=== PATIENT | female | born 1950 ===

== ENCOUNTER → 2022-04-14 07:56 | Outpatient (BNVA) | payer MEDICARE, SELFPAY | PROVIDERS: PCP Internal Medicine; Visit Provider Surgery | DX: E66.01 Morbid (severe) obesity due to excess calories (principal); Z68.41 Body mass index [BMI] 40.0-44.9, adult; I10 Essential (primary) hypertension; K21.9 Gastro-esophageal reflux disease without esophagitis; E03.9 Hypothyroidism, unspecified; E78.5 Hyperlipidemia, unspecified | CPT/HCPCS: Q3014 ==

== ENCOUNTER → 2022-04-18 10:24 | Outpatient (REF) | payer MEDICARE, SELFPAY ==
--- NOTE | ~2022-04-18 | XR_ITS ---
EXAMINATION: XR CHEST CLINICAL INFORMATION: Bariatric service evaluation. E66.01. COMPARISON: None TECHNIQUE: 2 views of the chest were obtained. FINDINGS: The lungs are clear and there is no airspace consolidation, groundglass opacity, or effusion. Normal vascularity. The cardiopericardial silhouette is upper limits of normal. There is tapering right cardiophrenic angle likely a combination of mild elevated diaphragm and areolar tissue. The hilar contours are normal. There are multilevel degenerative changes thoracic spine. XR/XR chest 2V IMPRESSION: -No airspace consolidation or effusion.
--- NOTE | 2022-04-18 10:41 | ECG_ITS ---
Test Reason : e66.01 Blood Pressure : / mmHG Vent. Rate : 082 BPM Atrial Rate : 082 BPM P-R Int : 166 ms QRS Dur : 076 ms QT Int : 378 ms P-R-T Axes : 052 -21 029 degrees QTc Int : 441 ms Sinus rhythm with marked sinus arrhythmia Inferior infarct , age undetermined Cannot rule out Anterior infarct , age undetermined Abnormal ECG No previous ECGs available Referred By: Tony Milligan Electronically Signed By:BRYAN COTTER MD
[2022-04-18 11:04] LABS: MANUAL DIFF FLAG NO
[2022-04-18 11:56] LABS: Basophils Percent Auto 0.4 % (0-2); Eosinophils Absolute Auto 0.1 X10*3/uL (0.0-0.4); Eosinophils Percent Auto 1.4 % (0-4); Hematocrit 39.5 % (37.0-47.0); Hemoglobin 12.8 g/dl (12.0-16.0); Imm Gran Abs Auto 0.03 X10*3/uL (0.00-0.03); Imm Gran Pct Auto 0.4 % (0.0-0.4); Lymphocytes Absolute Auto 2.2 X10*3/uL (1.2-4.9); Mean Corpuscular HGB Conc 32.4 g/dl (31.0-35.0); Mean Corpuscular Hemoglobin 29.2 pg (27.0-33.0); Monocytes Absolute Auto 0.5 X10*3/uL (0.1-1.2); Monocytes Percent Auto 6.8 % (2-11); Neutrophils Absolute Auto 4.1 x10*3/uL (2.0-8.3); Platelet Count 295 X10*3/uL (160-400); Red Blood Count 4.39 X10*6/uL (4.20-5.50); Red Cell Distribution Width 12.6 % (11.0-16.0); White Blood Count 6.9 X10*3/uL (4.8-10.8)
[2022-04-18 12:24] LABS: Estimated Average Glucose 117 mg/dL; Hemoglobin A1c % 5.7 %
[2022-04-18 13:59] LABS: Alanine Aminotransferase 27 U/L (0-31); Albumin Level 4.3 g/dL (3.5-5.0); Alkaline Phosphatase 87 U/L (39-117); Anion Gap 12 (12-20); Aspartate Amino Transferase 24 U/L (5-31); Bilirubin Total 0.5 mg/dL (0.0-1.0); Blood Urea Nitrogen 18 mg/dL (9-16); C Reactive Protein 1.03 mg/dL (< or = 0.50); Calcium 9.4 mg/dL (8.4-10.2); Carbon Dioxide 27 mmol/L (22-29); Chloride 103 mmol/L (96-108); Cholesterol 269 mg/dL; Estimated Glomerular Filt Rate > 60; Ferritin 146 ng/mL (10-250); Glucose Random 98 mg/dL (60-115); HDL Cholesterol 57 mg/dL; Insulin 8 uU/mL (2-29); Iron 56 mcg/dL (30-160); LDL Cholesterol Calculated 182 mg/dl; Percent Iron Saturation 20 % (15-50); Potassium 4.3 mmol/L (3.3-5.1); Sodium 138 mmol/L (135-145); TSH reflex Free T4 0.79 uIU/mL (0.32-4.0); Total Iron Binding Capacity 285 mcg/dL (228-428); Triglycerides 152 mg/dL; Unsaturated Iron Binding 229 ug/dL; Vitamin D 25-OH Total 26.8 ng/mL (>30)
[2022-04-18 14:14] LABS: Folate 17.4 ng/mL (> or = 4.0); Vitamin B12 695 pg/mL (200-900)
[2022-04-22 15:13] LABS: Calcium (PTHI) 9.5 mg/dL (8.6-10.4); PTHI 37 pg/mL (16-77)
[2022-04-23 19:03] LABS: Zinc 73 mcg/dL (60-130)
[2022-04-24 12:49] LABS: Vitamin A 55 mcg/dL (38-98)
[2022-04-27 06:13] LABS: Vitamin B1 11 nmol/L (8-30)
== END ==
LOC: HO.CARD 10:24
PROVIDERS: Visit Provider Surgery
DX: E66.01 Morbid (severe) obesity due to excess calories (principal); K21.9 Gastro-esophageal reflux disease without esophagitis; E03.9 Hypothyroidism, unspecified; E78.5 Hyperlipidemia, unspecified; I10 Essential (primary) hypertension
CPT/HCPCS: 36415; 71046; 80053; 80061; 82306; 82607; 82728; 82746; 83036; 83525; 83540; 83970; 84425; 84443; 84590; 84630; 85025; 86140; 93005

== ENCOUNTER 2022-05-01 07:51 | Outpatient (REF) | payer MEDICARE, SELFPAY ==
--- NOTE | ~2022-05-01 | CT_ITS ---
EXAMINATION: CT CHEST WITH CONTRAST CLINICAL INFORMATION: Congenital malformations of heart. COMPARISON: Chest. 04/18/2022. TECHNIQUE: Multidetector volumetric CT imaging of the chest was obtained after the administration of 50 mL of Omnipaque 350 intravenous contrast without immediate adverse reactions. Axial MIP volume rendering provided. Sagittal and coronal reformatted images were obtained. This CT examination was performed using dose optimization techniques as appropriate, variously including the following: *Automated exposure control *Adjustment of mA and/or kV according to patient size (this includes techniques or standardized protocols for targeted exams where dose is matched to indication/reason for exam; i.e. extremities or head) *Use of iterative reconstruction technique DLP: 253 mGy-cm FINDINGS: CORPORATE ADMINISTRATIVE ASSISTANT: Unremarkable. LUNGS: The lungs are well-expanded and clear of acute pneumonic process. Minimal atelectatic changes are visualized in the lingular segment. MEDIASTINUM: There is mild asymmetry of thyroid gland with left slightly smaller than right. The central trachea and bronchi are widely patent. Heart size and the great vessels are normal caliber.. There is moderate size pericardial fat stimulating soft tissue lesion on the chest x-ray 04/18/2022. No abnormal size mediastinal or hilar lymph nodes seen. There is a small hiatal hernia. Trace coronary artery calcifications are present. PLEURA: There is no pleural effusion. No pleural mass or thickening. AXILLA: No lymphadenopathy. UPPER ABDOMEN: Visualized liver is diffusely attenuated without focal lesion. Visualized spleen, pancreas and bilateral adrenal glands and the gallbladder appears unremarkable. OSSEOUS STRUCTURES: There is moderate ventral spondylosis mid to lower thoracic spine. CT/CT chest w IV con IMPRESSION: Moderate-sized pericardial fat stimulating soft tissue lesion on the chest x-ray 04/18/2022. No acute process seen in the chest. Small hiatal hernia. Fleischner guidelines were followed.
[2022-05-01] MEDS: iohexoL 350 MG/ML 100 ML INFUS..BTL IV (08:36)
== END 2022-05-01 07:52 | disposition home or self-care (01) ==
LOC: HO.CT 07:51
PROVIDERS: Visit Provider Surgery
DX: Q24.8 Other specified congenital malformations of heart (principal); Q79.1 Other congenital malformations of diaphragm; Q87.89 Other specified congenital malformation syndromes, not elsewhere classified; R94.31 Abnormal electrocardiogram [ECG] [EKG]
CPT/HCPCS: 71260; Q9967

== ENCOUNTER → 2022-05-07 07:52 | Outpatient (REF) | payer MEDICARE, SELFPAY ==
--- NOTE | ~2022-05-07 | NM_ITS ---
Myocardial perfusion study Indication: Abnormal EKG to evaluate for myocardial ischemia Technique: The patient was brought in for a Lexiscan perfusion study on 05/07/2022. Patient performed low-level exercise and was injected 0.4 mg of Lexiscan intravenously. Within a minute of injection, 30 mCi of sestamibi was given intravenously. Images were obtained using the SPECT gamma camera interlaced with the gating device. Images were obtained in supine position. Resting perfusion study was performed on 05/08/2022. Patient was administered 30 mCi of sestamibi intravenously at rest. Images were then obtained in supine position. Images obtained with and without CT attenuation. Total DLP 170 mGy-cm. Images were processed with the software and compared side to side in short axis, horizontal long axis and vertical long axis views. Findings: The stress perfusion study showed non attenuated images show mildly reduced uptake in the inferior wall of the LV myocardium. Remainder of the LV myocardium normally attenuation corrected images show minimally reduced uptake in the apex of the LV myocardium.. The gated study shows normal LV systolic function with calculated LVEF of 55%. LV cavity is normal in size. The gated study shows normal systolic wall thickening and contraction of segments. Resting study shows nontender images show moderately reduced uptake in the inferior wall of the LV myocardium. Impression corrected images show mildly reduced uptake in the apex and the distal septum of the LV myocardium.. Gating at rest reveals normal systolic wall motion with ejection fraction at 71%. The findings are consistent with no reversible defect suggestive of ischemia. NM/NM vincent perf SPECT rest & str Impression: 1. Myocardial perfusion imaging study shows likely normal myocardial perfusion 2. Gated LVEF is 55% 3. Transient ischemic dilatation not present EKG is nondiagnostic for ischemia
--- NOTE | 2022-05-07 07:55 | CA_ITS ---
Acquisition Time: 2022-05-07 08:02:06 Total Exercise Time: 00:02:00 Test Indications: ABN EKG Medications: SEE CHART Protocol: LEXISCAN Max HR: 111 BPM 74% of Pred: 150 BPM Max BP: 134/060 mmHG Max Work Load: 1.0 METS Pharmacological stress test with Lexiscan injection, while sitting and kicking her legs, with mild sob, no chest discomfort, with isolated PAC, with normotensive response to injection, with nondiagnostic EKG for ischemia. In recovery she was treated with Aminophylline 75mg IVP to reverse Lexiscan. Nuclear images pending. Test reviewed with Dr Marshall Referred By: Tony Milligan Overread By: KAT CHO
== END ==
LOC: HO.CARD 07:52
PROVIDERS: Visit Provider Surgery
DX: Z01.818 Encounter for other preprocedural examination (principal); R94.31 Abnormal electrocardiogram [ECG] [EKG]; R06.02 Shortness of breath
CPT/HCPCS: 78452; 93017; A9500; J0280; J2785

== ENCOUNTER → 2022-05-09 07:32 | Outpatient (REF) | payer MEDICARE, SELFPAY ==
--- NOTE | 2022-05-09 07:34 | CA_ITS ---
Transthoracic Echocardiogram Patient (Last, First, Middle): Maria Esther Salter, Gender: Female Date of : 1950 Age: 72 Procedure Date: 05/09/2022 Procedure Type: Transthoracic Echocardiogram Location: OP Height: 162.56 cm Weight: 104.33 kg BSA: 2.08 m2 Heart Rate: bpm BP: 123 / 60 mmHg Mobile Application Developer: Referring MD: Tony Milligan MD Piano Refinisher: Scott Marshall MD Symptoms: R94.31 - Abnormal electrocardiogram [ECG] [EKG] Study Quality: Good ECG Rhythm: Sinus Conclusions: - 1. Normal LV systolic function with grade 1 diastolic dysfunction 2. Early mild aortic stenosis 3. Normal RV systolic pressure 4. No gross pericardial effusion Findings Left Ventricle Normal left ventricular size, thickness, and systolic function. The visually estimated ejection fraction is between 55-60%. Spectral Doppler is indicative of an impaired relaxation filling pattern. E/E prime ratio is <8, consistent with normal filling pressures. Right Ventricle Normal right ventricular cavity size and systolic function. Atria Both atria are normal in size. There is no evidence of interatrial shunt. Aortic Valve There is mild calcification of the aortic valve. There is mild thickening of the aortic valve. There is mild aortic valve stenosis. The peak aortic gradient is 11 mmHg.The mean gradient is 5 mmHg. The aortic valve area is 1.83 cm2. There is no aortic valve regurgitation. Mitral Valve There is mild anterior and posterior mitral leaflet thickening. There is trace mitral valve regurgitation. There is no mitral valve stenosis. Pulmonic Valve The pulmonic valve was not well visualized. Tricuspid Valve Normal tricuspid valve structure. There is trace tricuspid valve regurgitation. The right ventricular systolic pressure is normal. The right ventricular systolic pressure is 23 mmHg. Normal right atrial pressure. There is no evidence of pulmonary hypertension. Great Vessels All visible segments of the aorta are normal in size. The pulmonary artery was not well visualized. Venous The inferior vena cava is normal in size and collapses greater than 50% with inspiration. Pericardium/Pleural There is no evidence of pericardial effusion. Prior Study Comparison No prior study available for comparison. Measurements 2D Linear Measurements IVSd: 1.08 0.6-0.9/0.6-1.0 cm LVIDd: 3.94 3.9-5.3/4.2-5.9 cm LVIDd Index: 1.89 2.4-3.2/2.2-3.1 cm/m2 LVIDs: 2.70 2.0-3.6 cm LVPWd: 1.06 0.7-1.1 cm Ao Root: 2.80 2.1-3.5 cm LA Diam: 3.20 2.7-3.8/3.0-4.0 cm LAIDs Index: 1.54 1.5-2.3 cm/m2 LV Mass: 170.14 67-162/88-224 g LV Mass Index: 81.80 43-95/49-115 g/m2 LVOT Diam: 2.00 3.0+(-)1.3 cm 2D Systolic Function EF 4C: 61.70 >55% EF 2C: 55.30 >55% EF BiP: 59.40 >55% Mitral Valve MV Pk E: 0.58 MV PK A: 0.81 MV Decel Time: 196.00 E/A: 0.70 E'Lateral: 6.96 E'Medial: 5.87 E/E' Med: 9.80 E/E' Lat: 8.30 PHT: 57.00 MVA PHT: 3.86 Decel [place]: 2.94 Aortic Valve AoV Pk Zeferino: 1.67 AoV Mn Zeferino: 1.01 AoV VTI: 0.36 AoV Pk Grad: 11.00 Aov Mn Grad: 5.00 LIAN Cont.VTI: 1.83 LVOT LVOT Pk Zeferino: 1.05 LVOT Mn Zeferino: 0.61 LVOT VTI: 0.21 LVOT Pk Grad: 4.00 LVOT Mn Grad: 2.00 LVOT Diam: 2.00 LVOT Area: 3.14 Diastolic Function MV Pk E: 0.58 MV Pk A: 0.81 E/A: 0.70 E'Medial: 5.87 E/E' Med: 9.80 E' Laterial: 6.96 E/E' Lat: 8.30 Right Ventricle TAPSE (mm): 20.00 TVS' Zeferino: 8.00 Tricuspid Valve TR Pk Zeferino: 2.24 TR Pk Grad: 20.00 RA Press: 3.00 RVSP: 23.00 Great Vessels Aorta Ao Root-2D: 2.80 2.0-3.7 cm Ao Asc: 3.10 2.1-3.4 cm Pulmonary Valve PV Pk Zeferino: 0.98 Peak PV Grad: 4.00 Updated in Other Vendor System with Status of Final Scott Marshall MD electronically signed on 05/10/2022 3:11:11 PM with status of Final
== END ==
LOC: HO.CARD 07:32
PROVIDERS: Visit Provider Surgery
DX: Z01.818 Encounter for other preprocedural examination (principal); R06.02 Shortness of breath; R94.31 Abnormal electrocardiogram [ECG] [EKG]
CPT/HCPCS: 93306

== ENCOUNTER → 2022-05-14 08:07 | Outpatient (BNVA) | payer MEDICARE, SELFPAY | PROVIDERS: PCP Internal Medicine; Visit Provider Surgery | DX: E66.9 Obesity, unspecified (principal); Z68.39 Body mass index [BMI] 39.0-39.9, adult | CPT/HCPCS: Q3014 ==

== ENCOUNTER → 2022-05-16 09:59 | Outpatient (BNVA) | payer MEDICARE, SELFPAY | PROVIDERS: PCP Internal Medicine; Visit Provider Physician Assistant Surgical | DX: E66.01 Morbid (severe) obesity due to excess calories (principal); K21.9 Gastro-esophageal reflux disease without esophagitis; E03.9 Hypothyroidism, unspecified; I10 Essential (primary) hypertension; E78.5 Hyperlipidemia, unspecified; Z11.0 Encounter for screening for intestinal infectious diseases | CPT/HCPCS: 97802; 99211 ==

== ENCOUNTER 2022-05-16 15:11 | Outpatient (REF) | payer MEDICARE, SELFPAY ==
[2022-05-17 14:42] LABS: H Pylori Breath Test Negative (Negative)
== END 2022-05-16 15:12 | disposition home or self-care (01) ==
LOC: HO.LNP 15:11
PROVIDERS: Visit Provider Surgery
DX: E66.01 Morbid (severe) obesity due to excess calories (principal); K21.9 Gastro-esophageal reflux disease without esophagitis; E03.9 Hypothyroidism, unspecified; I10 Essential (primary) hypertension; E78.5 Hyperlipidemia, unspecified; Z11.0 Encounter for screening for intestinal infectious diseases
CPT/HCPCS: 83013

== ENCOUNTER → 2022-06-09 08:16 | Outpatient (BNVA) | payer MEDICARE, SELFPAY | PROVIDERS: PCP Internal Medicine; Visit Provider Surgery | DX: E66.9 Obesity, unspecified (principal); Z68.38 Body mass index [BMI] 38.0-38.9, adult; F43.20 Adjustment disorder, unspecified | CPT/HCPCS: 90791; Q3014 ==

== ENCOUNTER → 2022-06-11 08:05 | Outpatient (BNVA) | payer MEDICARE, SELFPAY | PROVIDERS: PCP Internal Medicine; Visit Provider Surgery | DX: E66.9 Obesity, unspecified (principal); Z68.38 Body mass index [BMI] 38.0-38.9, adult | CPT/HCPCS: Q3014 ==

== ENCOUNTER → 2022-06-13 12:49 | Outpatient (BNVA) | payer MEDICARE, SELFPAY | PROVIDERS: PCP Internal Medicine; Visit Provider Surgery | DX: Z13.89 Encounter for screening for other disorder (principal) ==

== ENCOUNTER 2022-06-26 09:24 | Inpatient (IN) | payer MEDICARE, SELFPAY ==
[2022-06-13 12:47] LABS: MANUAL DIFF FLAG NO
[2022-06-13 13:12] LABS: White Blood Count 7.1 X10*3/uL (4.8-10.8)
[2022-06-13 13:13] LABS: Basophils Percent Auto 0.3 % (0-2); Eosinophils Absolute Auto 0.1 X10*3/uL (0.0-0.4); Eosinophils Percent Auto 1.4 % (0-4); Hematocrit 40.4 % (37.0-47.0); Hemoglobin 12.9 g/dl (12.0-16.0); Imm Gran Abs Auto 0.03 X10*3/uL (0.00-0.03); Imm Gran Pct Auto 0.4 % (0.0-0.4); Lymphocytes Absolute Auto 2.5 X10*3/uL (1.2-4.9); Lymphocytes Percent Auto 35.8 % (20-40); Mean Corpuscular HGB Conc 31.9 g/dl (31.0-35.0); Mean Corpuscular Hemoglobin 27.7 pg (27.0-33.0); Mean Corpuscular Volume 86.9 fL (80.0-98.0); Monocytes Absolute Auto 0.5 X10*3/uL (0.1-1.2); Monocytes Percent Auto 7.1 % (2-11); Neutrophils Absolute Auto 3.9 x10*3/uL (2.0-8.3); Platelet Count 312 X10*3/uL (160-400); Red Blood Count 4.65 X10*6/uL (4.20-5.50); Red Cell Distribution Width 12.8 % (11.0-16.0)
[2022-06-13 13:13] LABS: Influenza A PCR NEGATIVE (Negative); Influenza B PCR NEGATIVE (Negative); Resp Syncy Virus RNA Qual PCR NEGATIVE (Negative); SARS COV2 PCR INHOUSE NEGATIVE (Negative)
[2022-06-13 13:20] LABS: Prothrombin Time 11.8 SEC (10.0-13.1)
[2022-06-13 13:22] LABS: Partial Thromboplastin Time 29.3 SEC (26.0-36.4)
[2022-06-13 13:26] LABS: Estimated Average Glucose 111 mg/dL; Hemoglobin A1c % 5.5 %
[2022-06-13 14:01] LABS: Alanine Aminotransferase 25 U/L (0-31); Albumin Level 4.2 g/dL (3.5-5.0); Alkaline Phosphatase 74 U/L (39-117); Anion Gap 17 (12-20); Aspartate Amino Transferase 21 U/L (5-31); Bilirubin Total 0.6 mg/dL (0.0-1.0); Blood Urea Nitrogen 14 mg/dL (9-16); C Reactive Protein 1.09 mg/dL (< or = 0.50); Calcium 9.7 mg/dL (8.4-10.2); Carbon Dioxide 22 mmol/L (22-29); Chloride 106 mmol/L (96-108); Cholesterol 266 mg/dL; Estimated Glomerular Filt Rate > 60; Glucose Random 104 mg/dL (60-115); HDL Cholesterol 49 mg/dL; LDL Cholesterol Calculated 190 mg/dl; Sodium 141 mmol/L (135-145); Triglycerides 135 mg/dL
[2022-06-13 14:19] LABS: Insulin 10 uU/mL (2-29)
[2022-06-20 09:32] VITALS: BMI 37.4
--- NOTE | 2022-06-20 23:16 | MHC.SHP ---
Pre-Procedural Eval Section A Date of Service: 06/20/22 The patient is an INPATIENT: Yes The History & Physical has been completed within 30 days and I have reviewed it.: Yes Section B Chief Complaint: obesity Relevant Family History (Specify if Yes): No Relevant Social History: None Present Medications: None Medical History: No relevant PMH History of Previous Operations: No relevant previous surgery Allergies: Allergies Allergy/AdvReac Type Severity Reaction Status Date / Time albuterol AdvReac Intermediate Cough Verified 06/20/22 09:29 Review of Systems Sugical H&P ROS: Negative: Constitution, Cardiovascular, Respiratory, Neurological, Psychiatric, Hem-Onc, Allergic/Immunologic, Gastrointestinal, Genitourinary, Musculoskeletal, Integumentary, Endocrine and Eyes/Ears/Nose/Throat Exam Surgical H&P Exam: Normal: HEENT, Normal: Heart, Normal: Lungs, Normal: Extremities, Normal: Abdomen, Normal: Skin and Normal: Neurological Plan Diagnosis/Plan: Unchanged I have reviewed the history and physical and performed a pertinent physical examination on my patient. No changes have occurred unless specified. Time Spent With Patient Time: Total time managing care of this patient today ____ minutes.
[2022-06-25 12:53] LABS: COVID-19 Test Negative (Negative); IDNOW Serial# BCCEAD1C
[2022-06-26] VITALS (11 sets, daily range): BP systolic 149–178; BP diastolic 61–97; PULSE 61–85; RESP 9–22; TEMP 36–37.3; O2SAT 93–100
[2022-06-26] MEDS: Lactated Ringers 1,000 ML 999 ML IV (10:34)
[2022-06-26] MEDS: Lactated Ringers 1,000 ML 100 ML IVCONT ×3 (10:34→21:06)
--- NOTE | 2022-06-26 10:37 | P.CONAN_ITS ---
HPI - Anesthesia Eval Consult details Narrative: 72 yo female patient for EGD, Laparoscopic Sleeve Gastrectomy, possible diaphragmatic hernia repair, possible ventral hernia repair, possible open PMFSH Active Problems Active Problems: All Active Problems (Updated 06/20/22 @ 09:32 by Milvia Pavon RN) Hypertension (Acute) Vitamin D deficiency (Acute) Abnormal EKG (Acute) BMI 39.0-39.9,adult (Acute) Constipation (Acute) BMI 38.0-38.9,adult (Acute) Adjustment disorder, unspecified (Acute) COVID (Acute) Hyperlipidemia (Acute) Spasmodic dysphonia (Acute) DJD (degenerative joint disease) (Acute) Hypothyroidism (Acute) GERD (gastroesophageal reflux disease) (Acute) Morbid obesity (Acute) Past Medical History Medical History Abnormal EKG Arthritis DJD (degenerative joint disease) GERD (gastroesophageal reflux disease) History of COVID-19 HTN (hypertension) Hyperlipidemia Hypothyroidism Morbid obesity Spasmodic dysphonia Family History Family History Mother No problems noted. Father Diabetes Heart disease Brother Diabetes Sister Hypertension Diabetes Sister No problems noted. Son No problems noted. Son No problems noted. Daughter No problems noted. Daughter No problems noted. Family history of problems with anesthesia: No Surgical History Surgical History H/O colonoscopy History of ankle surgery History of esophagogastroduodenoscopy (EGD) History of Problems with Anesthesia: No Social History Social History Are you a primary director day care center to a significant other at home: No Do you presently have visiting nurse or other home services: No Alcohol intake: current Alcohol intake frequency: 0-2 drinks per day Patient Tobacco Use Status: Never used Tobacco Use of substances other than those prescribed or required for medical reasons: No Have you been hit, kicked, punched, or otherwise hurt by someone within the past year? If so, by whom?: No Are you DNR?: No Advance Directives Information Provided: Yes (as above noted) Advance Directives on File: No Recently lost weight without trying: No Eating poorly because of decreased appetite: No Nutrition Risks: No Nutritional Risk Poor oral hygiene: No Meds Allergies Allergy/AdvReac Type Severity Reaction Status Date / Time albuterol AdvReac Intermediate Cough Verified 06/26/22 09:54 Home Medications Medication Instructions Recorded Confirmed Last Taken Type levothyroxine 50 mcg capsule 50 mcg PO DAILY 04/11/22 06/26/22 06/26/22 04:00 History pantoprazole 40 mg tablet,delayed 40 mg PO DAILY 04/11/22 06/26/22 06/25/22 History release acetaminophen 500 mg tablet 500 mg PO Q6H 06/20/22 06/26/22 06/25/22 History docusate sodium 100 mg capsule 100 mg PO DAILY PRN Constipation 06/20/22 06/26/22 Unknown History (Colace) Exam Exam Date and Time: June 26, 2022 1037 Height,Weight and Vital Signs: Height 5 ft 4 in Weight 98.883 kg Last Vital Signs Temp 98.5 F 06/26/22 09:54 Pulse 85 06/26/22 09:54 Resp 16 06/26/22 09:54 BP 149/61 H 06/26/22 09:54 Pulse Ox 96 06/26/22 09:54 O2 Del Method 06/26/22 09:54 Pertinent Lab Results Pertinent Lab Results: Laboratory Tests 06/13/22 06/13/22 06/13/22 12:31 12:37 12:45 WBC 7.1 RBC 4.65 Hgb 12.9 Hct 40.4 MCV 86.9 MCH 27.7 MCHC 31.9 RDW 12.8 Plt Count 312 MPV 11.0 Immature Gran % (Auto) 0.4 Neut % (Auto) 55.0 Lymph % (Auto) 35.8 [place] % (Auto) 7.1 Eos % (Auto) 1.4 Baso % (Auto) 0.3 Lymph # (Auto) 2.5 [place] # (Auto) 0.5 Eos # (Auto) 0.1 Baso # (Auto) 0.0 Abs Immat Gran (auto) 0.03 Absolute Neuts (auto) 3.9 Absolute Nucleated RBC 0.000 Nucleated RBC % (auto) 0.0 PT INR APTT Sodium Potassium Chloride Carbon Dioxide Anion Gap BUN Creatinine Estim Creat Clear Calc Estimated GFR Random Glucose Estimat Average Glucose Hemoglobin A1c % Insulin Level Calcium Total Bilirubin AST ALT Alkaline Phosphatase C-Reactive Protein Total Protein Albumin Triglycerides Cholesterol LDL Cholesterol, Calc HDL Cholesterol TSH COVID-19 ([facility]) COVID-19 Clin Com Influenza Type A (PCR) NEGATIVE Influenza Type B (PCR) NEGATIVE RSV RNA Qual (PCR) NEGATIVE SARS-CoV-2 RNA (RT-PCR) NEGATIVE Blood Type A Positive Antibody Screen NEGATIVE 06/13/22 06/13/22 06/13/22 12:45 12:45 12:45 WBC RBC Hgb Hct MCV MCH MCHC RDW Plt Count MPV Immature Gran % (Auto) Neut % (Auto) Lymph % (Auto) [place] % (Auto) Eos % (Auto) Baso % (Auto) Lymph # (Auto) [place] # (Auto) Eos # (Auto) Baso # (Auto) Abs Immat Gran (auto) Absolute Neuts (auto) Absolute Nucleated RBC Nucleated RBC % (auto) PT 11.8 INR 1.0 APTT 29.3 Sodium 141 Potassium 4.0 Chloride 106 Carbon Dioxide 22 Anion Gap 17 BUN 14 Creatinine 0.74 Estim Creat Clear Calc TNP Estimated GFR > 60 Random Glucose 104 Estimat Average Glucose 111 Hemoglobin A1c % 5.5 Insulin Level 10 Calcium 9.7 Total Bilirubin 0.6 AST 21 ALT 25 Alkaline Phosphatase 74 C-Reactive Protein 1.09 H Total Protein 7.0 Albumin 4.2 Triglycerides 135 Cholesterol 266 LDL Cholesterol, Calc 190 HDL Cholesterol 49 TSH 1.30 COVID-19 ([facility]) COVID-19 Clin Com Influenza Type A (PCR) Influenza Type B (PCR) RSV RNA Qual (PCR) SARS-CoV-2 RNA (RT-PCR) Blood Type Antibody Screen 06/25/22 12:27 WBC RBC Hgb Hct MCV MCH MCHC RDW Plt Count MPV Immature Gran % (Auto) Neut % (Auto) Lymph % (Auto) [place] % (Auto) Eos % (Auto) Baso % (Auto) Lymph # (Auto) [place] # (Auto) Eos # (Auto) Baso # (Auto) Abs Immat Gran (auto) Absolute Neuts (auto) Absolute Nucleated RBC Nucleated RBC % (auto) PT INR APTT Sodium Potassium Chloride Carbon Dioxide Anion Gap BUN Creatinine Estim Creat Clear Calc Estimated GFR Random Glucose Estimat Average Glucose Hemoglobin A1c % Insulin Level Calcium Total Bilirubin AST ALT Alkaline Phosphatase C-Reactive Protein Total Protein Albumin Triglycerides Cholesterol LDL Cholesterol, Calc HDL Cholesterol TSH COVID-19 ([facility]) Negative COVID-19 Clin Com See Note Influenza Type A (PCR) Influenza Type B (PCR) RSV RNA Qual (PCR) SARS-CoV-2 RNA (RT-PCR) Blood Type Antibody Screen Narrative Narrative: Date of Service: 04/18/22 Procedure(s): ECG 12 lead EKG ? Sinus rhythm 82 with marked sinus arrhythmia Inferior infarct , age undetermined Cannot rule out Anterior infarct , age undetermined Abnormal ECG No previous ECGs available Date of Service: 05/07/22 Procedure(s): CA lexiscan stress w vincent Test Indications: ABN EKG ? Pharmacological stress test with Lexiscan injection, while sitting and kicking ?her legs, with mild sob, no chest discomfort, with isolated PAC, with ?normotensive response to injection, with nondiagnostic EKG for ischemia. In ?recovery she was treated with Aminophylline 75mg IVP to reverse Lexiscan. ?Nuclear images pending. Test reviewed with Dr Marshall Date of Service: 05/09/22 Procedure Type:? Transthoracic Echocardiogram ?? Conclusions: - 1. Normal LV systolic function? with grade 1 diastolic ? dysfunction? 2. Early mild aortic stenosis? 3. Normal RV systolic pressure ? 4. No gross pericardial effusion ? Findings Left Ventricle Normal left ventricular size, thickness, and systolic function. The visually estimated ejection fraction is between 55-60%.? Spectral Doppler is indicative of an impaired relaxation filling pattern.? E/E prime ratio is <8, consistent with normal filling pressures. Airway Mallampati Class: III TM Dist: >3cm Neck ROM: Full Loose/Missing/Broken Teeth: Yes (Missing teeth bottom back left and right, top back left and right) Heart: RRR Lungs: CTAB Assessment and Plan Assessment Anesthesia Assessment: Anesthesia Plan Discussed and Chart Reviewed Final Anesthetic Review Family History of Problems with Anesthesia: No History of Problems with Anesthesia: No NPO: Yes ASA Class: III Final Preanesthetic Review: No Changes in Pt Med Stat, Meds/Allgs Chart Reviewed, Consent Obtained/Reviewed and Anes Risks/Benef Reviewed Patient Risk: Intermediate Procedure Risk: Intermediate Assessment/Block/Sedation in SS: Assess/Block/Sedation-SS Anesthetic Plan Anesthetic Plan: GA Disposition: Standard PACU and Inp. Admit - Standard Bed
--- NOTE | 2022-06-26 12:18 | PM.OP ---
Brief Operative Note Date of Service: 06/26/22 Pre-op diagnosis: Severe obesity with comorbidities (see below) Post-op diagnosis: same Procedure: INITIAL PATIENT BMI ON PRESENTATION AT OUR OFFICE: 41.4 kg/m2 LAST BMI BEFORE SURGERY: 38.6 kg/m2 COMORBIDITIES: hypertension, hypothyroidism, DJD, hyperlipidemia, GERD, diaphragmatic hernia, liver steatosis, grade I diastolic dysfunction, focal nodular hyperplasia ?The patient presented to the Weight Management Program with significant obesity that was negatively impacting the patient's comorbidities as listed above.? The program is a phased program with a special focus on preoperative medical weight management to promote substantial weight loss and prepare the patients for the second phase of the program: bariatric surgery. The patient participated in an intensive weekly lifestyle ?intervention and exercise program during which the patient ?has lost between the initial office visit and the last preoperative visit 20.4lbs, or 8.45% of initial actual body weight. It was deemed appropriate for the patient to now have bariatric surgery. In light of the current Covid-19 pandemic and the well documented strong association of obesity and increased risk of worse outcomes if infected with Covid-19 (REFERENCES:https://pubmed.ncbi.nlm.nih.gov/89019903/,?https://pubmed.ncbi.nlm.nih.gov/01342763/), any delay in undergoing bariatric surgery may lead to the patient's worsening health condition and increased?risk of more severe Covid-19 disease if infected. In addition a recent?study from [facility] published in [employer] on 05/06/2021 ([email or web address]) found that, among patients with obesity, substantial weight loss achieved with surgery was associated with improved outcomes of COVID-19 infection. The findings suggest that obesity can be a modifiable risk factor for the severity of COVID-19 infection. In addition, the patient met the BMI-criteria for bariatric surgery based on the BMI on initial presentation. The patient should not be penalized for achieving such weight loss because ?it is not sustainable long-term without surgical intervention and it was achieved in preparation for bariatric surgery ?under my direction and based on my published research ([email or web address]).[email or web address] and?https://www.soard.org/article/[email or web address])97794-X/pdf) ?that a 10% preoperative weight loss improves long-term weight loss after surgery and reduces perioperative complications.? Insurance carriers such as [facility] have endorsed my recommendations ?and have included in their policies criteria to include a 10% preoperative weight loss requirement. PROCEDURE: Esophago-gastroscopy, laparoscopic repair of incarcerated diaphragmatic hernia, laparoscopic lysis of adhesions, laparoscopic sleeve gastrectomy and laparoscopic gastropexy INDICATIONS: This is a 72 year-old female who was electively scheduled for laparoscopic, possibly open sleeve gastrectomy. The risks and complications of the procedure were discussed with the patient in advance, particularly the possibility of ; pulmonary embolism; staple line leak; bleeding; GERD; cardiac, pulmonary, or renal complications; as well as long-term problems such as insufficient weight loss, vitamin deficiency, strictures, or ulcers. The patient understood all the risks, and was in agreement to proceed with surgery. DESCRIPTION OF PROCEDURE: After informed consent was obtained from the patient, the patient was given preoperative antibiotics, and was transferred to the operating room. After successful induction of general anesthesia, pneumatic compression devices were placed on both lower extremities. An upper endoscopy was performed next. The oropharynx and esophagus appeared to be within normal limits. There was a diaphragmatic hernia present of moderate size consistent with the findings of the preoperative upper GI. The stomach was entered. Then after all fluid and air were suctioned and the stomach was fully decompressed, the scope was withdrawn and secured in the mid esophagus. The patient was then prepped and draped in the usual sterile manner, and abdominal access was established at the right upper quadrant with the Randy technique. A 12 mm blunt port was inserted, and the abdomen was insufflated with CO2 to a pressure of 15 mmHg. Under direct visualization, additional ports were placed, specifically two 5 mm Versi-step ports to the left upper quadrant, and a 5 mm Versi-Step port to the right upper quadrant. 1% lidocaine plain was used to infiltrate all port sites as well as all fascia defects. Following that, the patient was placed in a steep reverse Trendelenburg position. An additional 5 mm port was placed to the right flank for the Mediflex retractor that was used to retract the left lobe of the liver. The gastro-esophageal fat pad was opened with the ultrasonic device (Thunderbeat, Olympus) and the anterior esophagus and hiatus were exposed. The angle of His was opened with the ultrasonic device the fundus of the stomach from any diaphragmatic and splenic attachments. I then opened the gastrocolic ligament between the transverse colon and the greater curvature of the stomach with the ultrasonic device to enter the lesser sac and facilitate the ligation of the short gastric vessels. I started at a mid-point along the greater curvature and using the Thunderbeat, all short gastric vessels were divided all the way to the angle of His until the left zaria was completely dissected at its entirety. I then divided the gastro-colic ligament distally to a distance of about 3-4 cm proximal to the pylorus. There were extensive congenital adhesions between the pancreas and posterior gastric wall. Those were lysed completely with the ultrasonic device. Adhesiolysis took approximately 45 min to complete. There was an obvious significant-sized hiatal hernia. I continued dissecting along the hiatus toward the left zaria and the angle of His. I fully mobilized the fat pad that was incarcerated in the hernia. I then continued by dissecting even further into the posterior retro-esophageal space all the way to the angle of His. I continued to mobilize the esophagus into the mediastinum circumferentially. Both vagal nerves were seen and preserved. At that point, I was able to have at least 3 to 5 cm of esophagus into the abdomen.? After I completely mobilized the esophagus from both the left and right zaria and I had a good mobilization of the esophagus circumferentially, I closed the hernia defect with four interrupted #0 Surgidac sutures using the Endo Stitch device, two of which was placed posterior and two of which anterior to the esophagus. ? The stomach was then divided transversely with one Endo OFELIA-45 purple, two OFELIA-45 orange loads and three OFELIA-60 articulating orange loads using the AEON stapler and loads. Every effort was made that the gastric sleeve had a tubular shape and an even caliber throughout. Once the sleeve resection was completed, the staple line of the gastric sleeve was reinforced with Hemoclips. The resected stomach was retrieved without difficulty from the Randy port. A gastropexy was then performed in order to prevent postoperative GERD and partial gastric volvulus. Several interrupted 2.0 Surgidac sutures were placed between the sleeve's staple line and the previously divided greater omentum and gastro-colic ligament using the Endo-Stitch device. ?An upper endoscopy was performed. There was no narrowing at the GE junction. The scope was easily advanced all the way to the pylorus which was clearly visualized. There was no narrowing anywhere and the sleeve's caliber was even throughout. The sleeve's staple line was inspected and there was no evidence of ischemia, bleeding or dehiscence. At that point the gastroscope was withdrawn from the patient?s mouth while we were decompressing the bowel and the stomach from any remaining air. I looked into the lesser sac to see how the sleeve was situating and it was situating well. There was no bleeding from the staple line, spleen, or short gastric vessels. The Mediflex retractor was removed, and the undersurface of the liver was inspected and there was no bleeding. The patient was placed in supine position. I closed the fascial defect of the 12 mm port site with a figure of eight #1 Polysorb suture. Then 30cc of Ropivacaine plain with 10 mg of Dexamethasone were used to infiltrate the fascial closure as well as all skin incisions. A total of 7ml Zynrelef was applied in the Randy wound. At this point, the abdomen was deflated, all ports were removed under direct vision, and no bleeding was noted from any of the port sites. The skin incisions were irrigated with saline and were closed with 4-0 absorbable monofilament sutures. Steri-Strips and OpSites were used to cover all incisions. The patient was extubated and was transferred in stable condition to the recovery room for further care. I was present and performed all wilburn parts of the procedure. Ms. Devi was the geriatric assistant. There were no residents to assist with this case. Kendall Milligan MD, PhD, FACS Surgeon: Tony Milligan MD Anesthesia: GETA, local and other (TAP block and 7ml of Zynrelef) Was an Completion Engineer used for this Procedure?: No Completion Engineer: Salud Devi Estimated blood loss (mL): 10 IV fluids (mL): 2,600 Urine output (mL): 0 (No Lara to record output) Pathology: other (Stomach) Condition: stable Disposition: PACU
--- NOTE | 2022-06-26 12:22 | PM.PNGS ---
Subjective Subjective Date of Service: 06/27/22 Interval history: Patient has mild incisional pain, but was able to ambulate and use the incentive spirometer. She is tolerating phase 1 bariatric diet Physical Exam Vital Signs: Vital Signs: Last Vital Signs Temp 98.5 F 06/26/22 09:54 Pulse 85 06/26/22 09:54 Resp 16 06/26/22 09:54 BP 149/61 H 06/26/22 09:54 Pulse Ox 96 06/26/22 09:54 O2 Del Method 06/26/22 09:54 BMI result Body Mass Index 37.4 GI: Inspection: Yes normal to inspection, Yes incision (clean, dry and intact) and Yes obesity Palpation (GI): Soft to palpation Extrem: Right lower extremity: normal to inspection (no calf tenderness) Left lower extremity: normal to inspection (no calf tenderness) Objective Data Labs 06/13/22 12:45 06/13/22 12:45 Labs: Laboratory Results - last 24 hr 06/25/22 12:27 COVID-19 ([facility]) Negative COVID-19 Clin Com See Note Procedures Date of Service Date of Service: 06/27/22 Progress Note: A&P Assessment and plan (1) Obesity: Status: Acute Assessment and Plan: s/p laparoscopic sleeve gastrectomy, lysis of adhesions repair of diaphragmatic hernia, and gastropexy Doing well Check am labs. If OK, will discharge home? (2) BMI 38.0-38.9,adult: Status: Acute (3) Hypertension: Status: Acute (4) Hyperlipidemia: Status: Acute (5) DJD (degenerative joint disease): Status: Acute (6) Hypothyroidism: Status: Acute (7) GERD (gastroesophageal reflux disease): Status: Acute (8) Grade I diastolic dysfunction: Status: Acute (9) Focal nodular hyperplasia of liver: Status: Acute (10) Aortic valve stenosis: Status: Acute (11) Diaphragmatic hernia: Status: Acute (12) Status post sleeve gastrectomy: Status: Acute (13) Status post repair of paraesophageal diaphragmatic hernia: Status: Acute Time Spent With Patient Time: Total time managing care of this patient today ____ minutes. Quality Stroke Does the patient have a stroke diagnosis?: No VTE Prior VTE?: No VTE Risk Level:: Surgical - moderate VTE Device Contraindication: N/A - Device Ordered VTE Drug Contraindication: Treatment Not Indicated
[2022-06-26] MEDS: ceFAZolin Sodium/Dextrose,Iso 2 GM/50 ML PIGGYBACK IV ×2 (12:59→18:30)
--- NOTE | 2022-06-26 14:59 | PHA.MEDREC ---
Pharmacy Consult ? Medication Reconciliation Pharmacy has completed the medication reconciliation. Reviewed med rec done by nursing
[2022-06-26] MEDS: Acetaminophen 1,000 MG/100 ML PIGGYBACK 400 MG IV (15:25)
--- NOTE | 2022-06-26 17:09 | P.DS_ITS ---
DS: Providers Provider Date of Service: 06/27/22 Date of admission: 06/26/22 09:24 Primary care physician: Thomas Dobbins MD DS: Diagnosis Discharge Diagnosis (1) Obesity: Status: Acute (2) BMI 38.0-38.9,adult: Status: Acute (3) Hypertension: Status: Acute (4) Hyperlipidemia: Status: Acute (5) DJD (degenerative joint disease): Status: Acute (6) Hypothyroidism: Status: Acute (7) GERD (gastroesophageal reflux disease): Status: Acute (8) Grade I diastolic dysfunction: Status: Acute (9) Focal nodular hyperplasia of liver: Status: Acute (10) Aortic valve stenosis: Status: Acute (11) Diaphragmatic hernia: Status: Acute DS: Summary Hospital Course Hospital Course: ADMITTING DIAGNOSIS: morbid obesity,?GERD, HLD, hypothyroidism, HTN, diaphragmatic hernia ? DISCHARGE DIAGNOSIS: same, s/p laparoscopic sleeve gastrectomy with gastropexy and repair diaphragmatic hernia ? PAST SURGICAL HISTORY:?ankle surgery ? PROCEDURE: upper endoscopy, laparoscopic sleeve gastrectomy with gastropexy and repair of diaphragmatic hernia ? DISCHARGE SUMMARY: ? History of Present Illness: ? The patient is a? 72? year-old woman with a BMI of? ?41.3 ? kg/m2 and associated co-morbidities as described above. The patient had extensive work-up,lost? 23.4? ? lbs preoperatively and was electively scheduled for laparoscopic, possible open sleeve gastrectomy and gastropexy. Risks and complications of the surgery were discussed with the patient in advance, particularly the possibility of , pulmonary embolism, anastomotic leak, bleeding, bowel injury, GERD, cardiac, renal or pulmonary complications. The patient understood all the risks and was in agreement with the surgical plan. ? Hospital Course: ? The patient underwent an uneventful laparoscopic sleeve gastrectomy with gastropexy and repair of diaphragmatic hernia on the day of admission. Postoperatively, the patient was transferred to the surgical floor. The patient received IV Acetaminophen and IV dilaudid for pain control. Patient was started on bariatric phase 1 diet POD #0. On postoperative day one, the patient was feeling well without nausea, vomiting, fevers, or tachycardia. The patient had some mild incisional pain and the abdomen was soft.? ? On the morning of postoperative day one, the patient was continued on 1 ounce of water or ice every half hour. During the day, the patient did fairly well, having some incisional pain, but able to ambulate adequately and to tolerate liquids well. ? Since the patient is doing well, we decided that the patient was ready to be discharged. The patient was given instructions to follow-up with me next week and to call my office for any fever over 101, persistent abdominal pain, nausea, vomiting, GERD, symptoms of DVT such as calf tenderness, or leg swelling, or pulmonary embolism such as chest pain or shortness of breath.? The patient was also instructed to drink 40-60 ounces of liquids per day using the 1-ounce cups. The patient had been given prescriptions for Tylenol for pain, Zofran prn for nausea, and pantoprazole and carafate previously. The patient was encouraged to ambulate and use the incentive spirometer. The patient was allowed to shower, but no baths, and encouraged to stay active at home. All of these instructions were given to the patient personally. All questions were answered and the patient understood all instructions, the instructions were also given to the patient in print. Time Spent with Patient Time attestation: Total time managing care of this patient today ____ minutes. Discharge coordination time: Less than 30 minutes Quality: Safe Use of Opioids Does Pt have an Active Cancer Diagnosis on the Problem List?: No Quality: Stroke Does the patient have a stroke diagnosis?: No Physical Exam Vital Signs: Vital Signs: Last Vital Signs Temp 99.1 F 06/26/22 16:21 Pulse 69 06/26/22 16:36 Resp 15 06/26/22 16:36 BP 167/72 H 06/26/22 16:36 Pulse Ox 100 06/26/22 16:36 O2 Del Method 06/26/22 16:36 O2 Flow Rate 4 06/26/22 16:36 BMI result Body Mass Index 37.4 DS: Data Data Completed and Pending Pending studies at discharge: Pending at discharge 06/26/22 14:28 Surgical [PTH] Routine Discharge Plan Discharge Anticipated Discharge Date/Time: 06/27/22 10:00 Patient Disposition: Home, Self-Care Discharge Diagnosis: s/p laparoscopic sleeve gastrectomy and hiatal hernia repair Referrals: Thomas Dobbins MD [Primary Care Provider] - 1 Week Discharge Medications: Continued acetaminophen 500 mg Tablet 500 mg PO Q6H docusate sodium [Colace] 100 mg capsule 100 mg PO DAILY PRN (Reason: Constipation) pantoprazole 40 mg tablet,delayed release (DR/EC) 40 mg PO DAILY levothyroxine 50 mcg capsule 50 mcg PO DAILY@0600 ([facility] [place]) blood pressure monitor Kit See Rx Instructions .ROUTE .MEDSUPPLY Qty: 1 0RF Rx Instructions: As directed sucralfate 100 mg/mL suspension 10 ml PO BID Qty: 400 2RF ondansetron HCl 4 mg tablet 4 mg PO Q12H Qty: 20 0RF Rx Instructions: Use only if you have nausea as needed Discontinued cholecalciferol (vitamin D3) 125 mcg (5,000 unit) capsule 125 mcg PO DAILY Qty: 30 2RF Discharge Orders: Discharge Order (Routine); Ordered 06/27/22 Ordered By: Tony Milligan Activity on Discharge: No heavy lifting Stand Alone Forms: Patient Portal Discharge page Care Plan Goals: weight loss Health Concerns: morbid obesity Plan of Treatment: No tub baths, sex or returning to work until discussed at first post op appointment. No alcohol, tobacco or illegal drug use. Continue to use incentive spirometer hourly while awake. Walk in home for 5- 10 minutes every 2 hours during the first week. Wear abdominal binder with activity. Continue phase 1 diet and follow all meal plan instructions from your bariatric surgeon. Review bariatric handbook and call with any questions. Discharge Instructions 1. Please call your doctor or come back to the emergency room should any new symptoms arise. 2. Activity: abstain from alcohol,? limited stair climbing, no bending, no driving, no exercise, no illicit substances, no lifting, no sex, no tub bath, no work. 4. Diet: follow your bariatric surgeons recommendations for advancing diet. 5. Dressing Change/Wound Care: Your incisions are covered with waterproof dressings. You can shower with these and pat dry. Do not rub over dressings or incisions. If the area is tender, you may apply an ice pack for short intervals (no more than 20 minutes on, followed by at least 20 minutes off). Do not apply heat. Do not use creams, lotions, or topical antibiotics unless instructed to do so by your surgeon. 6. Call your doctor if: - Your temperature exceeds 101.5 F - You experience excessive pain or swelling - You have an unexpected reaction to medication - You have excessive bleeding - You experience continued vomiting/nausea - Your incision begins to separate - Your incision shows signs of infection such as increased redness, swelling, excessive pain, heat, or drainage (light blood or clear fluid is normal) General instructions: No lifting greater than 5 lbs for the next 4 weeks[address] driving within 24 hours of taking narcotic pain medications. If you do not move your bowels in the next 2 days, please take milk of magnesia over the counter. Please follow the post op diet and do not advance your diet until you are seen in the office in about 2 weeks. Please walk around your home every hour or two to prevent blood clots from forming in your legs. You do not need to wake from sleeping to walk. Please sleep in a bed or couch to prevent kinking at the hips and knees. Please take your incentive spirometer (your lung feeder worker power unit operator) home with you and use it for the next few days to prevent pneumonias. You may shower, no hot tubs, baths or swimming pools. Please call the office with any questions or concerns such as increasing abdominal pain, fever, chills, shortness of breath, chest pain, leg pain or swelling, or redness or drainage from your incisions. Please make sure you are consuming 40-60 ounces of total fluids per day. Avoid all carbonation. Do not hesitate to contact the office with any questions at . The patient's medical history has been reviewed and they are considered low risk for post op DVT and therefore DVT prophylaxis is not considered necessary. Travel after surgery was reviewed. The patient has not disclosed any travel plans during the first 30 days after surgery and they have been advised that within the first 30 days after surgery any bus, plane, train or car travel over 2 hours in duration is contraindicated due to the possibility of developing blood clots from immobility. Any travel, needs to include periods of ambulation of 10 minutes in duration every 2 hours.? The patient was instructed to discuss any plans for travel during this period with their bariatric surgeon. Assessment: s/p lap sleeve gastrectomy and hiatal hernia repair Discharge Date/Time: 06/27/22 10:40
[2022-06-26] MEDS: Famotidine/PF 20 MG/2 ML VIAL IVPUSH ×2 (17:31→20:53)
[2022-06-26 18:04] LABS: Hematocrit 39.2 % (37.0-47.0); Hemoglobin 12.6 g/dl (12.0-16.0)
[2022-06-26 18:10] LABS: Anion Gap 17 (12-20); Blood Urea Nitrogen 11 mg/dL (9-16); Calcium 8.7 mg/dL (8.4-10.2); Carbon Dioxide 23 mmol/L (22-29); Chloride 105 mmol/L (96-108); Creatinine Clr Calc Pharmacy 74.7; Estimated Glomerular Filt Rate > 60; Glucose Random 126 mg/dL (60-115); Potassium 3.9 mmol/L (3.3-5.1); Sodium 141 mmol/L (135-145)
[2022-06-26] MEDS: Acetaminophen 1,000 MG/100 ML PIGGYBACK 16.7 MG IV (20:53)
[2022-06-26] MEDS: Enalaprilat Dihydrate 1.25 MG/ML VIAL IVPUSH (21:09)
[2022-06-27] MEDS: Acetaminophen 1,000 MG/100 ML PIGGYBACK 16.7 MG IV ×2 (01:59→07:48)
[2022-06-27] MEDS: ondansetron HCL 4 MG/2 ML VIAL IVPUSH (01:59)
[2022-06-27 02:05] VITALS: BP 112/53; PULSE 66; RESP 18; TEMP 36.3; O2SAT 97
[2022-06-27] MEDS: Levothyroxine Sodium 50 MCG TABLET PO (05:37)
[2022-06-27 06:10] LABS: MANUAL DIFF FLAG NO
[2022-06-27 06:16] LABS: Basophils Percent Auto 0.1 % (0-2); Hematocrit 37.5 % (37.0-47.0); Imm Gran Abs Auto 0.05 X10*3/uL (0.00-0.03); Imm Gran Pct Auto 0.5 % (0.0-0.4); Lymphocytes Absolute Auto 1.2 X10*3/uL (1.2-4.9); Mean Corpuscular Volume 87.6 fL (80.0-98.0); Mean Platelet Volume 10.9 fL (9.4-12.3); Monocytes Absolute Auto 0.4 X10*3/uL (0.1-1.2); Monocytes Percent Auto 3.9 % (2-11); Neutrophils Absolute Auto 9.3 x10*3/uL (2.0-8.3); Neutrophils Percent Auto 84.5 % (45-73); Platelet Count 199 X10*3/uL (160-400); Red Blood Count 4.28 X10*6/uL (4.20-5.50); Red Cell Distribution Width 12.8 % (11.0-16.0)
[2022-06-27 06:30] LABS: Anion Gap 15 (12-20); Blood Urea Nitrogen 10 mg/dL (9-16); Calcium 8.5 mg/dL (8.4-10.2); Carbon Dioxide 24 mmol/L (22-29); Chloride 105 mmol/L (96-108); Creatinine Clr Calc Pharmacy 80.8; Estimated Glomerular Filt Rate > 60; Glucose Random 118 mg/dL (60-115); Sodium 140 mmol/L (135-145)
[2022-06-27 07:36] VITALS: BP 137/63; PULSE 78; RESP 17; TEMP 36.8; O2SAT 93
[2022-06-27] MEDS: Famotidine/PF 20 MG/2 ML VIAL IVPUSH (07:48)
[2022-06-27] MEDS: Lactated Ringers 1,000 ML 100 ML IVCONT (07:48)
--- NOTE | 2022-06-27 10:43 | MHC.CM.PN ---
pt is indepedendent cm intervention is not indicated dc plan home no servceis
--- NOTE | 2022-06-28 16:32 | HO.POSTANES ---
Post Anesthesia Evaluation Post Anesthesia Evaluation Vital Signs: 133/63, 78, 17, 98.2F, 93%RA Anesthesia: General Endotracheal-GETA Mental Status: Awake Pain Control: Satisfactory Nausea/Vomiting: None Hydration: Adequate Anesthesia-Related Issues: No Anes. Related Issues
== END 2022-06-27 10:40 | disposition home or self-care (01) | DRG 620 ==
LOC: HO.SSSA 09:27 → HO.S3 14:55
PROVIDERS: Physician Assistant Surgical; Admitting Provider Surgery; PCP Internal Medicine; Visit Provider Surgery
PROC: 0DB64Z3 Excision of Stomach, Percutaneous Endoscopic Approach, Vertical (ICD-10-PCS; CPT 43845; principal; 2022-06-26 11:40)
DX: E66.01 Morbid (severe) obesity due to excess calories (principal); K44.0 Diaphragmatic hernia with obstruction, without gangrene; Q43.3 Congenital malformations of intestinal fixation; K21.9 Gastro-esophageal reflux disease without esophagitis; M19.90 Unspecified osteoarthritis, unspecified site; E78.5 Hyperlipidemia, unspecified; K76.0 Fatty (change of) liver, not elsewhere classified; I51.89 Other ill-defined heart diseases; K71.8 Toxic liver disease with other disorders of liver; E03.9 Hypothyroidism, unspecified; Z20.822 Contact with and (suspected) exposure to COVID-19; Z68.38 Body mass index [BMI] 38.0-38.9, adult; Z88.8 Allergy status to other drugs, medicaments and biological substances; Z79.890 Hormone replacement therapy; Z79.899 Other long term (current) drug therapy
CPT/HCPCS: 0241U; 36415; 80048; 80053; 80061; 83036; 83525; 84443; 85014; 85018; 85025; 85610; 85730; 86140; 86850; 86900; 86901; 87635; 88307; 88342; A4649; C9088; J0131; J0690; J1100; J1170; J2250; J2405; J2550; J2765; J2795; J3010

== ENCOUNTER → 2022-07-02 14:22 | Outpatient (BNVA) | payer MEDICARE, SELFPAY | PROVIDERS: PCP Internal Medicine; Visit Provider Physician Assistant Surgical | DX: E66.9 Obesity, unspecified (principal); Z68.37 Body mass index [BMI] 37.0-37.9, adult; Z87.19 Personal history of other diseases of the digestive system; Z98.84 Bariatric surgery status; Z90.3 Acquired absence of stomach [part of] | CPT/HCPCS: 99212 ==

== ENCOUNTER → 2022-07-18 11:46 | Outpatient (BNVA) | payer MEDICARE, SELFPAY | PROVIDERS: PCP Internal Medicine; Referring Provider Internal Medicine; Visit Provider Physician Assistant Surgical | DX: E66.9 Obesity, unspecified (principal); Z90.3 Acquired absence of stomach [part of]; Z98.890 Other specified postprocedural states; Z87.19 Personal history of other diseases of the digestive system; Z68.35 Body mass index [BMI] 35.0-35.9, adult | CPT/HCPCS: 99212 ==

== ENCOUNTER → 2022-08-01 13:51 | Outpatient (BNVA) | payer MEDICARE, SELFPAY | PROVIDERS: PCP Internal Medicine; Visit Provider Physician Assistant Surgical | DX: E66.01 Morbid (severe) obesity due to excess calories (principal); Z68.34 Body mass index [BMI] 34.0-34.9, adult; Z90.3 Acquired absence of stomach [part of] | CPT/HCPCS: 99212 ==

== ENCOUNTER → 2022-08-29 08:59 | Outpatient (BNVA) | payer MEDICARE, SELFPAY | PROVIDERS: PCP Internal Medicine; Visit Provider Physician Assistant Surgical | DX: E66.9 Obesity, unspecified (principal); Z90.3 Acquired absence of stomach [part of]; Z68.34 Body mass index [BMI] 34.0-34.9, adult | CPT/HCPCS: 99212 ==

== ENCOUNTER 2022-09-04 15:13 | Outpatient (REF) | payer MEDICARE, SELFPAY ==
[2022-09-04 15:37] LABS: MANUAL DIFF FLAG NO
[2022-09-04 15:53] LABS: Basophils Percent Auto 0.4 % (0-2); Eosinophils Absolute Auto 0.2 X10*3/uL (0.0-0.4); Eosinophils Percent Auto 2.6 % (0-4); Hematocrit 39.4 % (37.0-47.0); Hemoglobin 12.8 g/dl (12.0-16.0); Imm Gran Abs Auto 0.01 X10*3/uL (0.00-0.03); Imm Gran Pct Auto 0.1 % (0.0-0.4); Lymphocytes Absolute Auto 3.1 X10*3/uL (1.2-4.9); Lymphocytes Percent Auto 44.9 % (20-40); Mean Corpuscular HGB Conc 32.5 g/dl (31.0-35.0); Mean Corpuscular Hemoglobin 28.3 pg (27.0-33.0); Mean Corpuscular Volume 87.2 fL (80.0-98.0); Mean Platelet Volume 11.6 fL (9.4-12.3); Monocytes Absolute Auto 0.5 X10*3/uL (0.1-1.2); Neutrophils Absolute Auto 3.1 x10*3/uL (2.0-8.3); Platelet Count 254 X10*3/uL (160-400); Red Blood Count 4.52 X10*6/uL (4.20-5.50); Red Cell Distribution Width 14.7 % (11.0-16.0); White Blood Count 6.8 X10*3/uL (4.8-10.8)
[2022-09-04 15:56] LABS: Estimated Average Glucose 111 mg/dL; Hemoglobin A1c % 5.5 %
[2022-09-04 16:17] LABS: Alanine Aminotransferase 27 U/L (0-31); Albumin Level 4.2 g/dL (3.5-5.0); Alkaline Phosphatase 78 U/L (39-117); Anion Gap 12 (12-20); Aspartate Amino Transferase 25 U/L (5-31); Bilirubin Total 0.6 mg/dL (0.0-1.0); Blood Urea Nitrogen 22 mg/dL (9-16); C Reactive Protein 0.61 mg/dL (< or = 0.50); Calcium 9.6 mg/dL (8.4-10.2); Carbon Dioxide 29 mmol/L (22-29); Chloride 103 mmol/L (96-108); Cholesterol 240 mg/dL; Estimated Glomerular Filt Rate > 60; Glucose Random 91 mg/dL (60-115); HDL Cholesterol 45 mg/dL; Iron 45 mcg/dL (30-160); LDL Cholesterol Calculated 161 mg/dl; Percent Iron Saturation 18 % (15-50); Potassium 4.1 mmol/L (3.3-5.1); Sodium 140 mmol/L (135-145); Total Iron Binding Capacity 254 mcg/dL (228-428); Total Protein 6.8 g/dL (6.5-8.0); Triglycerides 174 mg/dL; Unsaturated Iron Binding 209 ug/dL
[2022-09-04 16:46] LABS: Ferritin 180 ng/mL (10-250); Folate 10.6 ng/mL (> or = 4.0); Insulin 7 uU/mL (2-29); TSH reflex Free T4 1.41 uIU/mL (0.32-4.0); Vitamin B12 787 pg/mL (200-900); Vitamin D 25-OH Total 50.7 ng/mL (>30)
[2022-09-05 14:08] LABS: Calcium (PTHI) 9.8 mg/dL (8.6-10.4); PTHI 29 pg/mL (16-77)
[2022-09-09 01:28] LABS: Zinc 71 mcg/dL (60-130)
[2022-09-10 16:38] LABS: Vitamin B1 30 nmol/L (8-30)
[2022-09-11 16:29] LABS: Vitamin A 55 mcg/dL (38-98)
== END 2022-09-04 15:14 | disposition home or self-care (01) ==
LOC: HO.LAB 15:13
PROVIDERS: PCP Internal Medicine; Visit Provider Physician Assistant Surgical
DX: K91.2 Postsurgical malabsorption, not elsewhere classified (principal); Z90.3 Acquired absence of stomach [part of]
CPT/HCPCS: 36415; 80053; 80061; 82306; 82607; 82728; 82746; 83036; 83525; 83540; 83970; 84425; 84443; 84590; 84630; 85025; 86140

== ENCOUNTER → 2022-10-03 09:06 | Outpatient (BNVA) | payer MEDICARE, SELFPAY | PROVIDERS: PCP Internal Medicine; Referring Provider Internal Medicine; Visit Provider Physician Assistant Surgical | DX: E66.9 Obesity, unspecified (principal); Z90.3 Acquired absence of stomach [part of]; Z68.33 Body mass index [BMI] 33.0-33.9, adult | CPT/HCPCS: 99212 ==

== ENCOUNTER 2023-01-15 13:23 | Outpatient (AMB) | payer MEDICARE, SELFPAY ==
--- NOTE | 2023-01-15 13:26 | MHC.OFFVISWM ---
Intake VS Expanded 01/15/23 13:36 Height 5 ft 4 in Weight 181 lb 1.6 oz BMI 31.1 BP 157/70 H Blood Pressure Location Rt brachial Blood Pressure Position Sitting Pulse 62 Pulse Source Pulse Oximeter Temp 98.1 F Temperature Source Tympanic Pulse Oximetry 98 Oxygen Delivery Method Room Air Body Fat 71.8 Body Fat Percentage 39.6 Free Fat Mass 109.8 Muscle Mass 104.2 Visceral Mass 12.0 Water Mass 77.4 BMR 1,497 Intake Visit Reasons: (OV) PO LSG 06/26/22 Allergies albuterol Adverse Reaction (Intermediate, Verified 01/15/23 13:38) Cough Medication List - Last Reconciled 01/15/23 by TIMOTHY Zhou blood pressure monitor As directed levothyroxine 50 mcg PO DAILY@0600 pantoprazole 40 mg PO DAILY PRN HPI HPI Comments History of Present Illness Details This?is a?72?yo female who is s/p LSG 06/26/2022. Presents for 8 month month post op visit. Weight at last visit on 10/03/2022 was 192 pounds with a BMI of 33, weight today is 181.8 pounds, representing a 10.2 pound weight loss with a BMI today of 31.2.? No complaints of nausea, emesis, abdominal pain or constipation. Uses pantoprazole when needed. Her was recently diagnosed with pancreatic cancer, with masses noted in liver. Going for biopsy next week for further prognosis. Understandably this has been a difficult time for her and she is not always 100% consistent on meal plan but doing her best. Present meal plan includes: between 6-11am has two Celebrate shake with 2 scoops and 8oz coconut milk bar in afternoon - has been skipping this 2-3oz solid protein (often chicken) with veg for dinner notes she snacks on popcorn and will have a glass of wine most days continues to be mindful of portion sizes Exercise routine includes: under desk bike a few times a week- 15-20 min? gardening [facility] Medical History (Updated 09/05/22 @ 07:07 by Elvia Mckeon) Abnormal EKG Arthritis HTN (hypertension) History of COVID-19 Hyperlipidemia Spasmodic dysphonia DJD (degenerative joint disease) Hypothyroidism GERD (gastroesophageal reflux disease) Morbid obesity Surgical History (Reviewed 01/15/23 @ 13:31 by Bianca Solano [facility]) S/P laparoscopic sleeve gastrectomy History of esophagogastroduodenoscopy (EGD) H/O colonoscopy History of ankle surgery Family History (Reviewed 01/15/23 @ 13:31 by Bianca Solano [facility]) Mother No problems noted. Father Diabetes Heart disease Brother Diabetes Sister Hypertension Diabetes Sister No problems noted. Son No problems noted. Son No problems noted. Daughter No problems noted. Daughter No problems noted. Social History Are you a primary care transition coordinator to a significant other at home: No Do you presently have visiting nurse or other home services: No Alcohol intake: current Alcohol intake frequency: 0-2 drinks per day Patient Tobacco Use Status: Never used Tobacco service: No Assessment & Plan Assessment & Plan (1) Obesity: Code(s): E66.9 - Obesity, unspecified (2) Status post sleeve gastrectomy: Code(s): Z90.3 - Acquired absence of stomach [part of] (3) Status post repair of paraesophageal diaphragmatic hernia: Code(s): Z98.890 - Other specified postprocedural states; Z87.19 - Personal history of other diseases of the digestive system Plan Pt will continue same meal plan. She will ensurage ~75g protein per day. We reviewed body composition measurements and pt has had all fat loss since last visit according to Tanita. Will schedule next visit for annual in Jun as she recently had labs done. I encouraged her to reach out via text if needed between now and then, and can schedule additional visit in the interim if she desires to check in sooner. Patient is obese and is not considered stable at this time. I spent a total of 30 minutes reviewing/updating records, examining the patient and counseling the patient on weight management as detailed above. Coding Level of Care Code Est Pt Level 4 (36977) Diagnoses Obesity E66.9 Status post sleeve gastrectomy Z90.3 Status post repair of paraesophageal diaphragmatic hernia Z98.890; Z87.19
[2023-01-15 13:36] VITALS: BP 157/70; PULSE 62; TEMP 36.7; O2SAT 98; BMI 31.1
== END 2023-01-15 13:59 | disposition home or self-care (01) ==
PROVIDERS: PCP Internal Medicine; Visit Provider Physician Assistant Surgical
DX: E66.9 Obesity, unspecified (principal); Z68.31 Body mass index [BMI] 31.0-31.9, adult; Z90.3 Acquired absence of stomach [part of]; Z98.84 Bariatric surgery status; Z87.19 Personal history of other diseases of the digestive system
CPT/HCPCS: 99213

== ENCOUNTER → 2023-01-15 13:23 | Outpatient (BNVA) | payer MEDICARE, SELFPAY | PROVIDERS: PCP Internal Medicine; Visit Provider Physician Assistant Surgical ==

== ENCOUNTER 2023-06-25 13:34 | Outpatient (AMB) | payer MEDICARE, SELFPAY ==
--- NOTE | 2023-06-25 13:37 | MHC.NURWM ---
Intake Intake Visit Reasons: (OV) PO LSG 06/26/22 Allergies albuterol Adverse Reaction (Intermediate, Verified 01/15/23 13:38) Cough Coding
--- NOTE | 2023-06-25 13:41 | MHC.OFFVISWM ---
Intake VS Expanded 06/25/23 13:46 BP 147/70 H Blood Pressure Location Rt brachial Blood Pressure Position Sitting Pulse 78 Pulse Source Pulse Oximeter Temp 97.5 F Temperature Source Temporal Artery Scan Pulse Oximetry 98 Oxygen Delivery Method Room Air Height 5 ft 4 in Weight 175 lb 3.2 oz BMI 30.1 Body Fat % 36.8 Body Fat Mass 64.4 Fat Free Mass 110.6 Visceral Fat Rating 11.0 Body Water % 44.5 Body Water Mass 77.8 Muscle Mass/Score 105.2 Basal Metabolic Rate/Score 1,495 Intake Visit Reasons: (OV) PO LSG 06/26/22 Allergies albuterol Adverse Reaction (Intermediate, Verified 06/25/23 13:40) Cough Medication List - Last Reconciled 06/25/23 by TIMOTHY Zhou blood pressure monitor As directed levothyroxine 50 mcg PO DAILY@0600 pantoprazole 40 mg PO DAILY PRN HPI HPI Comments History of Present Illness Details This?is a?73?yo female who is s/p LSG 06/26/2022. Presents for 1 year post op visit. Weight at last visit on 01/15/2023 was 181.1 pounds with a BMI of 31.1, weight today is 175.2 pounds, representing a 6 pound weight loss with a BMI today of 30.1.? No complaints of nausea, emesis, abdominal pain or reflux, or constipation. still battling pancreatic cancer. Present meal plan includes: two Celebrate shake with 2 scoops and 8oz coconut milk, one in morning and one in afternoon 2-3oz solid protein (often chicken) with veg for dinner if she is away and doesn't have a shake for breakfast will make sure to have a protein snacks on popcorn and will have a glass of wine most days continues to be mindful of portion sizes Exercise routine includes: under desk bike a few times a week- 15-20 min? walking, gardening Did the patient ever have any of these conditions and are they resolved or still being treated? GERD: pantoprazole- only takes when she has spicy foods [place]:? never DM:? never HTN:? never Hyperlipidemia:? was borderline, never on meds? Post op complications:? none PFSH Medical History (Updated 09/05/22 @ 07:07 by Elvia Mckeon) Abnormal EKG Arthritis HTN (hypertension) History of COVID-19 Hyperlipidemia Spasmodic dysphonia DJD (degenerative joint disease) Hypothyroidism GERD (gastroesophageal reflux disease) Morbid obesity Surgical History S/P laparoscopic sleeve gastrectomy History of esophagogastroduodenoscopy (EGD) H/O colonoscopy History of ankle surgery Family History Mother No problems noted. Father Diabetes Heart disease Brother Diabetes Sister Hypertension Diabetes Sister No problems noted. Son No problems noted. Son No problems noted. Daughter No problems noted. Daughter No problems noted. Social History Are you a primary multi care technician to a significant other at home: No Do you presently have visiting nurse or other home services: No Alcohol intake: current Alcohol intake frequency: 0-2 drinks per day Patient Tobacco Use Status: Never used Tobacco service: No Assessment & Plan Assessment & Plan (1) Obesity: Code(s): E66.9 - Obesity, unspecified (2) Status post sleeve gastrectomy: Code(s): Z90.3 - Acquired absence of stomach [part of] Plan Pt is happy with her current meal plan. She is dealing with a lot personally with her 's health and does not want to make any changes right now. We discussed that we could adjust meal plan if her weight loss stalls. Annual labs ordered. RTC 3 months. Patient is obese and is not considered stable at this time. I spent a total of 30 minutes reviewing/updating records, examining the patient and counseling the patient on weight management as detailed above. Orders: Orders Insulin Today Z90.3 - Acquired absence of stomach [part of] Complete Blood Count Auto Diff Today Z90.3 - Acquired absence of stomach [part of] IRON PROFILE Today Z90.3 - Acquired absence of stomach [part of] Zinc Today Z90.3 - Acquired absence of stomach [part of] C Reactive Protein Today Z90.3 - Acquired absence of stomach [part of] Vitamin B1 Today Z90.3 - Acquired absence of stomach [part of] Vitamin D 25-OH Total Today Z90.3 - Acquired absence of stomach [part of] Hemoglobin A1c Today Z90.3 - Acquired absence of stomach [part of] Lipid Panel Today Z90.3 - Acquired absence of stomach [part of] Comprehensive Met. Panel Today Z90.3 - Acquired absence of stomach [part of] Vitamin B12 and Folate Today Z90.3 - Acquired absence of stomach [part of] Vitamin A Today Z90.3 - Acquired absence of stomach [part of] TSH reflex Free T4 Today Z90.3 - Acquired absence of stomach [part of] Ferritin Today Z90.3 - Acquired absence of stomach [part of] Medications: Refilled pantoprazole 40 mg PO DAILY PRN 30 tabs 5RF for acid reflux Coding Level of Care Code Est Pt Level 4 (74315) Diagnoses Obesity E66.9 Status post sleeve gastrectomy Z90.3
[2023-06-25 13:46] VITALS: BP 147/70; PULSE 78; TEMP 36.4; O2SAT 98; BMI 30.1
== END 2023-06-25 14:01 | disposition home or self-care (01) ==
LOC: HO.HBS 13:34
PROVIDERS: PCP Internal Medicine; Visit Provider Physician Assistant Surgical
DX: E66.9 Obesity, unspecified (principal); Z68.30 Body mass index [BMI] 30.0-30.9, adult; Z90.3 Acquired absence of stomach [part of]; Z98.84 Bariatric surgery status
CPT/HCPCS: 99214

== ENCOUNTER → 2023-06-25 13:34 | Outpatient (BNVA) | payer MEDICARE, SELFPAY | PROVIDERS: PCP Internal Medicine; Visit Provider Physician Assistant Surgical | DX: E66.9 Obesity, unspecified (principal); Z90.3 Acquired absence of stomach [part of]; Z68.30 Body mass index [BMI] 30.0-30.9, adult | CPT/HCPCS: 99212 ==

== ENCOUNTER 2023-06-26 07:58 | Outpatient (REF) | payer MEDICARE, SELFPAY ==
[2023-06-26 08:19] LABS: MANUAL DIFF FLAG NO
[2023-06-26 08:59] LABS: Basophils Percent Auto 0.6 % (0-2); Eosinophils Absolute Auto 0.1 X10*3/uL (0.0-0.4); Eosinophils Percent Auto 2.1 % (0-4); Hematocrit 40.5 % (37.0-47.0); Hemoglobin 13.2 g/dl (12.0-16.0); Imm Gran Abs Auto 0.01 X10*3/uL (0.00-0.03); Imm Gran Pct Auto 0.2 % (0.0-0.4); Lymphocytes Absolute Auto 2.1 X10*3/uL (1.2-4.9); Lymphocytes Percent Auto 40.5 % (20-40); Mean Corpuscular HGB Conc 32.6 g/dl (31.0-35.0); Mean Corpuscular Hemoglobin 29.7 pg (27.0-33.0); Mean Platelet Volume 10.8 fL (9.4-12.3); Monocytes Absolute Auto 0.3 X10*3/uL (0.1-1.2); Monocytes Percent Auto 6.6 % (2-11); Neutrophils Absolute Auto 2.6 x10*3/uL (2.0-8.3); Platelet Count 240 X10*3/uL (160-400); Red Blood Count 4.45 X10*6/uL (4.20-5.50); Red Cell Distribution Width 12.5 % (11.0-16.0); White Blood Count 5.1 X10*3/uL (4.8-10.8)
[2023-06-26 09:06] LABS: Estimated Average Glucose 100 mg/dL; Hemoglobin A1c % 5.1 % (<6.0)
[2023-06-26 09:36] LABS: Alanine Aminotransferase 14 U/L (0-31); Albumin Level 3.8 g/dL (3.5-5.0); Alkaline Phosphatase 78 U/L (39-117); Anion Gap 12 (12-20); Aspartate Amino Transferase 18 U/L (5-31); Bilirubin Total 0.5 mg/dL (0.0-1.0); Blood Urea Nitrogen 14 mg/dL (9-16); Calcium 9.3 mg/dL (8.4-10.2); Carbon Dioxide 28 mmol/L (22-29); Chloride 107 mmol/L (96-108); Cholesterol 243 mg/dL (<200); Estimated Glomerular Filt Rate > 60; Glucose Random 98 mg/dL (60-115); HDL Cholesterol 64 mg/dL (>40); Iron 88 mcg/dL (30-160); LDL Cholesterol Calculated 161 mg/dL (<100); Percent Iron Saturation 34 % (15-50); Sodium 143 mmol/L (135-145); Total Iron Binding Capacity 256 mcg/dL (228-428); Total Protein 6.6 g/dL (6.5-8.0); Triglycerides 90 mg/dL (<150); Unsaturated Iron Binding 168 ug/dL
[2023-06-26 09:54] LABS: Ferritin 149 ng/mL (10-250); Insulin 4 uU/mL (2-29); TSH reflex Free T4 1.27 uIU/mL (0.32-4.0); Vitamin D 25-OH Total 38.4 ng/mL (>30)
[2023-06-26 10:06] LABS: Folate 11.8 ng/mL (> or = 4.0); Vitamin B12 739 pg/mL (200-900)
[2023-06-30 00:34] LABS: Zinc 89 mcg/dL (60-130)
[2023-07-01 05:28] LABS: Vitamin A 42 mcg/dL (38-98)
[2023-07-02 06:04] LABS: Vitamin B1 21 nmol/L (8-30)
== END 2023-06-26 07:59 | disposition home or self-care (01) ==
LOC: HO.LAB 07:58
PROVIDERS: PCP Internal Medicine; Visit Provider Physician Assistant Surgical
DX: Z90.3 Acquired absence of stomach [part of] (principal)
CPT/HCPCS: 36415; 80053; 80061; 82306; 82607; 82728; 82746; 83036; 83525; 83540; 84425; 84443; 84590; 84630; 85025; 86140

== ENCOUNTER 2023-10-09 10:13 | Outpatient (REF) | payer MEDICARE, SELFPAY ==
--- NOTE | ~2023-10-09 | US_ITS ---
EXAMINATION: US COMPLETE ABDOMEN WITH LIVER ELASTOGRAPHY CLINICAL INFORMATION: Abdominal pain. COMPARISON: None available. TECHNIQUE: Real-time imaging of the abdominal viscera. Noninvasive ultrasound liver fibrosis assessment is performed using Sean ElastPQ point quantification shear wave elastography (2D-SWE) with a C5-2 MHz transducer. Multiple elastography samples are obtained. FINDINGS: PANCREAS: The visualized portions of the pancreas are unremarkable but a large portion of the gland is obscured by bowel gas. ABDOMINAL AORTA: The proximal, middle, and distal aortic segments are normal in caliber. INFERIOR VENA CAVA: Visualized portions are normal. LIVER: The liver is enlarged and demonstrates mildly increased echogenicity suggesting hepatic steatosis. No focal lesion or intrahepatic biliary duct dilatation. The right lobe measures 17.8 cm in length. The left lobe measures 7.9 cm in length. Portal flow is hepatopedal. Shear wave liver elastography median stiffness is 1.58 m/s (reference: normal median stiffness is 1.3 m/s or less). IQR/median stiffness to assess sampling precision is 0.09 (reference: good quality data set is IQR/median stiffness of 0.15 or less). GALLBLADDER: The gallbladder contains small gravel-type stones. No polyps, wall thickening or pericholecystic fluid. COMMON BILE DUCT: Normal in caliber measuring 0.3 cm in diameter. RIGHT KIDNEY: Minimal fullness in the collecting system but no gross hydronephrosis. No renal calculi or focal parenchymal lesions. The kidney measures 11.5 cm in maximum dimension. LEFT KIDNEY: Minimal fullness in the collecting system but no gross hydronephrosis. No renal calculi or focal parenchymal lesions. The kidney measures 11.6 cm in maximum dimension. SPLEEN: Normal. The spleen measures 9.1 cm in maximum dimension. FREE FLUID: None. US/US abdomen comp w elastography IMPRESSION: 1. Enlarged echogenic liver suggesting hepatic steatosis. Small gallstones without evidence of cholecystitis. 2. Liver elastography: In the absence of other known clinical signs, measurements rule out compensated advanced chronic liver disease. If there are known clinical signs, further testing may be needed for confirmation. REFERENCE: Society of Radiologists in Ultrasound Liver Stiffness Thresholds (2020): LIVER STIFFNESS THRESHOLDS: *Liver Stiffness equal or less than 1.3 m/s: High probability of being normal. *Liver Stiffness less than 1.7 m/s: In the absence of other known clinical signs, rules out compensated advanced chronic liver disease. *Liver Stiffness 1.7-2.1 m/s: Suggestive of compensated advanced chronic liver disease but need further test for confirmation. *Liver Stiffness over 2.1 m/s: Rules in compensated advanced chronic liver disease. *Liver Stiffness over 2.4 m/s: Suggestive of clinically significant portal hypertension. QUALITY OF DATA SET: *IQR/Median value equal or less than 0.15 implies a quality data set. *IQR/Median value over 0.15 implies a poor quality data set. SIGNIFICANT CHANGE FROM PRIOR EXAM: Significant change if liver stiffness measurement is 10% or greater from prior exam. OTHER CONSIDERATIONS: The stage of liver fibrosis may be overestimated in the setting of acute hepatitis, liver inflammation, elevated liver function tests, hepatic vascular congestion, obstructive cholestasis, non-fasting state, and infiltrative diseases such as amyloidosis and lymphoma. In some patients with NAFLD, the liver stiffness thresholds for compensated advanced chronic liver disease may be lower. In causes other than viral hepatitis and NAFLD, liver stiffness thresholds are not well established.
== END 2023-10-09 10:14 | disposition home or self-care (01) ==
LOC: HO.US 10:13
PROVIDERS: PCP Internal Medicine; Visit Provider Surgery
DX: R10.9 Unspecified abdominal pain (principal)
CPT/HCPCS: 76700; 76981

== ENCOUNTER 2023-11-04 14:41 | Outpatient (AMB) | payer MEDICARE, SELFPAY ==
--- NOTE | 2023-11-04 15:14 | A.OFFVIS_ITS ---
VS Expanded 11/04/23 15:20 Height 5 ft 4 in Weight 175 lb BMI 30.0 Intake Visit Reasons: TV Pre Op Lap Amairani 11/11/23 Allergies albuterol Adverse Reaction (Intermediate, Verified 11/04/23 15:20) Cough Medication List - Last Reconciled 11/04/23 by Tony Milligan MD blood pressure monitor As directed levothyroxine 50 mcg PO DAILY@0600 ondansetron 4 mg PO Q12H pantoprazole 40 mg PO DAILY PRN HPI HPI TV Pre Op Lap Amairani 11/11/23: Details: Start time: 3.14pm, End time: 3.24pm ?I spent 15 minutes speaking with the patient on the phone plus an additional 5 minutes reviewing and updating records for a total of 20 minutes HPI Comments Details: Has been complaining of mid-epigastric abdominal pain Abdominal US was consistent with cholelithiasis PFSH Medical History (Updated 11/04/23 @ 15:23 by Tony Milligan MD) Abnormal EKG Arthritis HTN (hypertension) History of COVID-19 Hyperlipidemia Spasmodic dysphonia DJD (degenerative joint disease) Hypothyroidism GERD (gastroesophageal reflux disease) Morbid obesity Surgical History S/P laparoscopic sleeve gastrectomy History of esophagogastroduodenoscopy (EGD) H/O colonoscopy History of ankle surgery Family History Mother No problems noted. Father Diabetes Heart disease Brother Diabetes Sister Hypertension Diabetes Sister No problems noted. Son No problems noted. Son No problems noted. Daughter No problems noted. Daughter No problems noted. Social History Are you a primary intensive care unit registered nurse to a significant other at home: No Do you presently have visiting nurse or other home services: No Alcohol intake: current Alcohol intake frequency: 0-2 drinks per day Patient Tobacco Use Status: Never used Tobacco service: No Telehealth Telehealth Telehealth Platform: Telephone Location of provider rendering services: practice address Location of patient: address on file Patient Identification confirmed using: Name, : Yes Telehealth method: voice only Patient verbally consented to treatment: Yes Patient verbally consented to billing insurance company: Yes Patient informed of any privacy concerns related to visit: Yes Minutes spent on Phone/Video with Pt.: 20 Assessment & Plan Assessment & Plan (1) Cholelithiasis: Code(s): K80.20 - Calculus of gallbladder without cholecystitis without obstruction Category: Medical Qualifiers: Cholelithiasis location: gallbladder Cholecystitis presence: without cholecystitis Biliary obstruction: without biliary obstruction Qualified Code(s): K80.20 - Calculus of gallbladder without cholecystitis without obstruction Plan: 1. The patient was not aware of having a cholelithiasis. We also discussed that bariatric surgery may accelerate the onset of symptoms of cholelithiasis and that is why elective cholecystectomy in indicated and recommended. We discussed in detail the potential complications and their management including bleeding, bile leak, pancreatitis and major bile duct injury. 2. Avoid any aspirin, motrin, aleve, ibuprofen, advil, meloxicam. They can cause bleeding. You can use Tylenol 3. Do your preoperative blood work nay day between 11/05/23 and Thursday11/06/23. No need to fast. Orders: Orders Comprehensive Met. Panel Today K80.20 - Calculus of gallbladder without cholecystitis without obstruction Complete Blood Count Auto Diff Today K80.20 - Calculus of gallbladder without cholecystitis without obstruction Prothrombin Time INR Today K80.20 - Calculus of gallbladder without cholecystitis without obstruction Type and Screen Today K80.20 - Calculus of gallbladder without cholecystitis without obstruction Partial Thromboplastin Time Today K80.20 - Calculus of gallbladder without cholecystitis without obstruction Medications: New ondansetron 4 mg PO Q12H 20 tabs 0RF nausea and vomiting R11.0 - Nausea
== END 2023-11-04 15:25 | disposition home or self-care (01) ==
LOC: HO.HBS 14:41
PROVIDERS: PCP Internal Medicine; Visit Provider Surgery
DX: K80.20 Calculus of gallbladder without cholecystitis without obstruction (principal)
CPT/HCPCS: 99499

== ENCOUNTER → 2023-11-04 14:41 | Outpatient (BNVA) | payer MEDICARE, SELFPAY | PROVIDERS: PCP Internal Medicine; Visit Provider Surgery ==

== ENCOUNTER 2023-11-11 08:27 | Day surgery (SDC) | payer MEDICARE, SELFPAY ==
[2023-11-06 11:01] LABS: MANUAL DIFF FLAG NO
[2023-11-06 11:31] LABS: Basophils Percent Auto 0.4 % (0-2); Eosinophils Absolute Auto 0.1 X10*3/uL (0.0-0.4); Hematocrit 40.6 % (37.0-47.0); Hemoglobin 13.2 g/dl (12.0-16.0); Imm Gran Abs Auto 0.02 X10*3/uL (0.00-0.03); Imm Gran Pct Auto 0.4 % (0.0-0.4); Lymphocytes Absolute Auto 1.7 X10*3/uL (1.2-4.9); Lymphocytes Percent Auto 37.1 % (20-40); Mean Corpuscular HGB Conc 32.5 g/dl (31.0-35.0); Mean Corpuscular Hemoglobin 30.1 pg (27.0-33.0); Mean Corpuscular Volume 92.7 fL (80.0-98.0); Mean Platelet Volume 10.7 fL (9.4-12.3); Monocytes Absolute Auto 0.3 X10*3/uL (0.1-1.2); Neutrophils Absolute Auto 2.4 x10*3/uL (2.0-8.3); Neutrophils Percent Auto 53.1 % (45-73); Platelet Count 242 X10*3/uL (160-400); Red Blood Count 4.38 X10*6/uL (4.20-5.50); Red Cell Distribution Width 12.5 % (11.0-16.0); White Blood Count 4.6 X10*3/uL (4.8-10.8)
[2023-11-06 11:35] LABS: INTERNATIONAL NORM RATIO 0.9 (0.9-1.1); Prothrombin Time 10.8 SEC (11.1-13.3)
[2023-11-06 11:38] LABS: Partial Thromboplastin Time 24.1 SEC (26.0-36.8)
[2023-11-06 12:33] LABS: Alanine Aminotransferase 12 U/L (0-31); Albumin Level 3.9 g/dL (3.5-5.0); Alkaline Phosphatase 73 U/L (39-117); Anion Gap 9 (12-20); Aspartate Amino Transferase 18 U/L (5-31); Bilirubin Total 0.3 mg/dL (0.0-1.0); Blood Urea Nitrogen 19 mg/dL (9-16); Calcium 9.1 mg/dL (8.4-10.2); Carbon Dioxide 27 mmol/L (22-29); Chloride 108 mmol/L (96-108); Estimated Glomerular Filt Rate > 60; Glucose Random 71 mg/dL (60-115); Potassium 3.8 mmol/L (3.3-5.1); Sodium 140 mmol/L (135-145); Total Protein 6.7 g/dL (6.5-8.0)
[2023-11-11] VITALS (9 sets, daily range): BP systolic 125–154; BP diastolic 48–68; PULSE 52–63; RESP 12–16; TEMP 36.4–37.3; O2SAT 93–100; BMI 28.6
[2023-11-11] MEDS: Aprepitant 32 MG/4.4 ML VIAL IVPUSH (09:35)
[2023-11-11] MEDS: Lactated Ringers 1,000 ML 100 ML IVCONT (09:35)
--- NOTE | 2023-11-11 10:27 | P.HPSUR_ITS ---
Pre-Procedural Eval Section A - 24 Hr Update-Section A only Date of Service: 11/11/23 The patient is an INPATIENT: No The patient has been examined within 24 hours of the surgical procedure. The History & Physical has been completed within 30 days and I have reviewed it.: Yes Section B - Complete if H&P > 30 days Chief Complaint: Calculus of gallbladder without cholecystitis with Relevant Family History (Specify if Yes): No Relevant Social History: None Present Medications: None Medical History: No relevant PMH History of Previous Operations: No relevant previous surgery Allergies: Allergies Allergy/AdvReac Type Severity Reaction Status Date / Time albuterol AdvReac Intermediate Cough Verified 11/11/23 08:59 Review of Systems Sugical H&P ROS: Negative: Constitution, Cardiovascular, Respiratory, Neurolo gical, Psychiatric, Hem-Onc, Allergic/Immunologic, Gastrointestinal, Genitourinary, Musculoskeletal, Integumentary, Endocrine and Eyes/Ears/Nose/Throat Exam Surgical H&P Exam: Normal: HEENT, Normal: Heart, Normal: Lungs, Normal: Extremities, Normal: Abdomen, Normal: Skin and Normal: Neurological Plan Diagnosis/Plan: Unchanged (Laparoscopic cholecystectomy for symptomatic cholelithiasis) I have reviewed the history and physical and performed a pertinent physical examination on my patient. No changes have occurred unless specified. Time Spent With Patient Time: Total time managing care of this patient today ____ minutes.
--- NOTE | 2023-11-11 10:32 | P.BOP_ITS ---
Brief Operative Note Date of Service: 11/11/23 Pre-op diagnosis: Symptomatic cholelithiasis Post-op diagnosis: same Procedure: PROCEDURE DATE: 11/11/2023 PREOPERATIVE DIAGNOSIS: Symptomatic cholelithiasis, mid epigastric and right upper quadrant abdominal pain POSTOPERATIVE DIAGNOSIS: Same as above. PROCEDURE: Laparoscopic cholecystectomy Surgeon: Kendall Milligan M.D.. Ph.D. Parking Regulation Enforcement Officer: Salud Devi PA-C Anesthesia: General endotracheal anesthesia Estimated blood loss: Minimal FINDINGS AND PROCEDURE: OPERATIVE INDICATIONS: The patient is a 73 year old female known to me who underwent a laparoscopic sleeve gastrectomy. The patient had remarkable weight loss so far and had a completely uneventful recovery. The patient was doing very well but has recently been complaining of persistent mid epigastric and right upper quadrant abdominal pain which is mostly postprandial. Ultrasound of the abdomen and pelvis was consistent with cholelithiasis. Based on this information we recommended laparoscopic cholecystectomy. Risks and complications of the surgery were discussed with the patient in advance particularly the possibility of conversion to an open surgery, bleeding, infection, obstruction, deep vein thrombosis or pulmonary embolism, bile leak or major bile duct injury that may require surgical intervention. The patient understood the risks and was in agreement with the plan. PROCEDURE: After informed consent was obtained by the patient, the patient was transferred to the Operating Room and was placed in the supine position. The patient was given preoperative antibiotics and after successful induction of general anesthesia, pneumatic compression devices were placed. The patient was then prepped and draped in the usual sterile manner and abdominal access was established with the Randy technique. The abdomen was insufflated with C02 to a pressure of 15 mmHg. A 5 mm Versi-step port was placed, slightly to the right and superior from the umbilicus. The 5 mm camera was introduced. We inspected the area where the port had been placed and there was no injury. The patient was then placed initially in a steep reverse Trendelenburg position and three additional ports were placed, specifically a 12 mm Versi-step port just to the right of the midline below the xiphoid process and two 5 mm Versi-step ports at the right upper quadrant and right flank. At that point the patient was placed in a steep reverse Trendelenburg position tilted to the left side. The gallbladder was retracted cephalad and laterally. The peritoneal attachments of the gallbladder at the triangle of Calot posteriorly and anteriorly were taken down. The cystic duct and artery were both seen. They cystic artery was located anterior to the duct and it was dissected first. The lymph node was dissected off the vessel. The cystic artery and duct were then completely dissected free, skeletonized all the way to the infundibulum of the gallbladder . In a similar fashion we also cleaned the liver bed just behind the cystic artery to make sure there was no additional structures in this area, except from an additional small vessel that was also dissected and clipped with one clip proximally and one distal. Once we confirmed that both structures were entering into the gallbladder and there were no other structures in the area, they were both clipped with two clips proximally, one distally and were cut in-between. We then using the electrocautery we slowly took down the gallbladder from the liver bed. Small areas of bleeding from the liver parenchyma were controlled with the cautery. After the gallbladder was completely detached from the liver bed, it was placed in an EndoCatch bag and was removed without difficulty from the xyphoid port. We then inspected the clips at the cystic duct and artery and were both in place. There was no active bleeding from the liver bed. At that point the patient was placed in supine position, we deflated the abdomen and we removed all ports under direct vision and no bleeding was noted from any of the port sites. The fascia of the 12 mm port was closed using a #1 Polysorb suture. 30cc Ropivacaine with Dexamethasone were used to infiltrate the fascial closure as well as all skin incisions. A total of 7ml Zynrelef was applied in the Randy wound. The wounds were irrigated with saline mixed with antibiotic solution and then the skin was closed with 4-0 Monocryl subcuticular sutures antibiotic-coated. Steri-strips and OpSites were used to cover all incisions. The patient extubated and was transferred in stable condition to the Recovery Room for further care. I was present and performed all steps of the procedure. Ms. Devi was the assisted living assistant. There were no residents to assist with this case. Kendall Milligan M.D., Ph.D., F.A.C.S. Surgeon: Tony Milligan MD Anesthesia: GETA, local and other (TAP block and 7ml Zynrelef) Was an Parking Regulation Enforcement Officer used for this Procedure?: No Parking Regulation Enforcement Officer: Salud Devi Estimated blood loss (mL): 10 IV fluids (mL): 1,000 Urine output (mL): 0 (No Lara to record output) Pathology: other (Gallbladder) Condition: stable Disposition: PACU
--- NOTE | 2023-11-11 10:42 | HO.ANESPROP2 ---
HPI - Anesthesia Eval Consult details Narrative: 73 yo female patient for Laparoscopic cholecystectomy PMFSH Active Problems Active Problems: All Active Problems Cholelithiasis (Acute) Abdominal pain (Acute) Hypertension (Acute). No medication for over a year since bariatric surgery GERD (gastroesophageal reflux disease) (Acute) Hypothyroidism (Acute) DJD (degenerative joint disease) (Acute) Spasmodic dysphonia (Acute) Hyperlipidemia (Acute) Vitamin D deficiency (Acute) Abnormal EKG (Acute) Constipation (Acute) Adjustment disorder, unspecified (Acute Grade I diastolic dysfunction (Acute) Focal nodular hyperplasia of liver (Acute) Aortic valve stenosis (Acute) Diaphragmatic hernia (Acute) Status post sleeve gastrectomy (Acute) Status post repair of paraesophageal diaphragmatic hernia (Acute) Past Medical History Medical History Abnormal EKG Arthritis HTN (hypertension) History of COVID-19 Hyperlipidemia Spasmodic dysphonia DJD (degenerative joint disease) Hypothyroidism GERD (gastroesophageal reflux disease) Morbid obesity Family History Family History Mother No problems noted. Father Diabetes Heart disease Brother Diabetes Sister Hypertension Diabetes Sister No problems noted. Son No problems noted. Son No problems noted. Daughter No problems noted. Daughter No problems noted. Family history of problems with anesthesia: No Surgical History Surgical History S/P laparoscopic sleeve gastrectomy History of esophagogastroduodenoscopy (EGD) H/O colonoscopy History of ankle surgery History of Problems with Anesthesia: No Social History Social History Are you a primary career development engineer to a significant other at home: No Do you presently have visiting nurse or other home services: No Alcohol intake: current Alcohol intake frequency: 0-2 drinks per day Patient Tobacco Use Status: Never used Tobacco Use of substances other than those prescribed or required for medical reasons: No Are you DNR?: No Advance Directives: No Advance Directives Information Provided: Yes service: No Meds Allergies Allergy/AdvReac Type Severity Reaction Status Date / Time albuterol AdvReac Intermediate Cough Verified 11/11/23 08:59 Active Medications: Current Medications Lactated Ringer's (Lr) 1,000 mls @ 100 mls/hr IVCONT .Q10H GRETA Last Admin: 11/11/23 09:35 Dose: 100 mls/hr Home Medications ?Medication ?Instructions ?Recorded ?Confirmed ?Last Taken ?Type levothyroxine 50 mcg capsule 50 mcg PO DAILY@0600 04/11/22 11/11/23 11/11/23 06:00 History Exam Height,Weight and Vital Signs: Height 5 ft 5 in Weight 78.018 kg Last Vital Signs Temp 99.1 F 11/11/23 09:10 Pulse 63 11/11/23 09:10 Resp 16 11/11/23 09:10 BP 144/61 H 11/11/23 09:10 Pulse Ox 98 11/11/23 09:10 O2 Del Method Room Air 11/11/23 09:10 Pertinent Lab Results Pertinent Lab Results: Laboratory Tests 11/06/23 11/06/23 10:49 10:59 WBC 4.6 L RBC 4.38 Hgb 13.2 Hct 40.6 MCV 92.7 MCH 30.1 MCHC 32.5 RDW 12.5 Plt Count 242 MPV 10.7 Immature Gran % (Auto) 0.4 Neut % (Auto) 53.1 Lymph % (Auto) 37.1 [place] % (Auto) 7.0 Eos % (Auto) 2.0 Baso % (Auto) 0.4 Lymph # (Auto) 1.7 [place] # (Auto) 0.3 Eos # (Auto) 0.1 Baso # (Auto) 0.0 Abs Immat Gran (auto) 0.02 Absolute Neuts (auto) 2.4 Absolute Nucleated RBC 0.000 Nucleated RBC % (auto) 0.0 PT 10.8 L INR 0.9 APTT 24.1 L Sodium 140 Potassium 3.8 Chloride 108 Carbon Dioxide 27 Anion Gap 9 L BUN 19 H Creatinine 0.76 Estim Creat Clear Calc TNP Estimated GFR > 60 Random Glucose 71 Calcium 9.1 Total Bilirubin 0.3 AST 18 ALT 12 Alkaline Phosphatase 73 Total Protein 6.7 Albumin 3.9 Blood Type A Positive Antibody Screen NEGATIVE Airway Mallampati Class: II TM Dist: >3cm Neck ROM: Full Loose/Missing/Broken Teeth: No (Denies broken, loose, missing teeth ) Heart: RRR Lungs: CTAB Assessment and Plan Assessment Anesthesia Assessment: Anesthesia Plan Discussed and Chart Reviewed Final Anesthetic Review Family History of Problems with Anesthesia: No History of Problems with Anesthesia: No NPO: Yes ASA Class: III Final Preanesthetic Review: No Changes in Pt Med Stat, Meds/Allgs Chart Reviewed, Consent Obtained/Reviewed and Anes Risks/Benef Reviewed Patient Risk: Intermediate Procedure Risk: Intermediate Assessment/Block/Sedation in SS: Assess/Block/Sedation-SS Anesthetic Plan Anesthetic Plan: GA Disposition: Standard PACU
== END 2023-11-11 14:21 | disposition home or self-care (01) ==
PROVIDERS: PCP Internal Medicine; Visit Provider Surgery
PROC: 0FT44ZZ Resection of Gallbladder, Percutaneous Endoscopic Approach (ICD-10-PCS; CPT 47562; principal; 2023-11-11 10:30)
DX: K80.10 Calculus of gallbladder with chronic cholecystitis without obstruction (principal); Z98.84 Bariatric surgery status; Z90.3 Acquired absence of stomach [part of]; I10 Essential (primary) hypertension; E78.5 Hyperlipidemia, unspecified; M19.90 Unspecified osteoarthritis, unspecified site; E03.9 Hypothyroidism, unspecified; K21.9 Gastro-esophageal reflux disease without esophagitis; J38.3 Other diseases of vocal cords; Z79.899 Other long term (current) drug therapy; Z88.8 Allergy status to other drugs, medicaments and biological substances
CPT/HCPCS: 47562; 36415; 80053; 85025; 85610; 85730; 86850; 86900; 86901; 88304; 88313; C9088; C9145; J0131; J0690; J1100; J2250; J2371; J2405; J2704; J2795; J3010

== ENCOUNTER → 2023-11-11 08:27 | Outpatient (BNV) | payer MEDICARE, SELFPAY | PROVIDERS: PCP Internal Medicine; Visit Provider Surgery | DX: K80.20 Calculus of gallbladder without cholecystitis without obstruction (principal) | CPT/HCPCS: 47562 ==

== ENCOUNTER 2023-11-18 12:01 | Outpatient (AMB) | payer MEDICARE, SELFPAY ==
--- NOTE | 2023-11-18 12:03 | A.OFFVIS_ITS ---
VS Expanded 11/18/23 12:11 BP 147/68 H Blood Pressure Location Rt brachial Blood Pressure Position Sitting Pulse 67 Pulse Source Pulse Oximeter Temp 97.6 F Temperature Source Temporal Artery Scan Pulse Oximetry 99 Oxygen Delivery Method Room Air Height 5 ft 4 in Weight 167 lb 3.2 oz BMI 28.7 Body Fat % 38.0 Body Fat Mass 63.4 Fat Free Mass 103.6 Visceral Fat Rating 10.0 Body Water % 43.7 Body Water Mass 73.0 Muscle Mass/Score 98.4 Basal Metabolic Rate/Score 1,409 Intake Visit Reasons: (OV) s/p Lap Waqas 11/11/23 Allergies albuterol Adverse Reaction (Intermediate, Verified 11/18/23 12:07) Cough Medication List - Last Reconciled 11/18/23 by TIMOTHY Zhou blood pressure monitor As directed levothyroxine 50 mcg PO DAILY@0600 pantoprazole 40 mg PO DAILY PRN HPI Comments Details: Pt is 1 week s/p lap waqas 11/11/2023. Pain is controlled. No fevers at home. No N/V. Tolerating meal plan with protein drinks. [facility] Medical History Abnormal EKG Arthritis HTN (hypertension) History of COVID-19 Hyperlipidemia Spasmodic dysphonia DJD (degenerative joint disease) Hypothyroidism GERD (gastroesophageal reflux disease) Morbid obesity Surgical History S/P laparoscopic sleeve gastrectomy History of esophagogastroduodenoscopy (EGD) H/O colonoscopy History of ankle surgery Family History Mother No problems noted. Father Diabetes Heart disease Brother Diabetes Sister Hypertension Diabetes Sister No problems noted. Son No problems noted. Son No problems noted. Daughter No problems noted. Daughter No problems noted. Social History Are you a primary medicare coordinator to a significant other at home: No Do you presently have visiting nurse or other home services: No Alcohol intake: current Alcohol intake frequency: 0-2 drinks per day Patient Tobacco Use Status: Never used Tobacco service: No Physical Exam Const General: cooperative, comfortable and no acute distress Orientation/consciousness: patient oriented x3 GI Other: soft, nontender, nondistended, steri-strips c/d/i Neuro General: patient oriented x3 Assessment & Plan Assessment & Plan (1) S/P laparoscopic cholecystectomy: Code(s): Z90.49 - Acquired absence of other specified parts of digestive tract Category: Surgical (2) Status post sleeve gastrectomy: Code(s): Z90.3 - Acquired absence of stomach [part of] Category: Surgical Plan Continue high protein meal plan. May exercise, no heavy lifting or abdominal exercise until 6w postop. May shower, no baths/swimming. Pt requests work note to go back Thursday, provided. RTC 5 weeks. I spent a total of 30 minutes reviewing/updating records, examining the patient and counseling the patient on weight management as detailed above.
[2023-11-18 12:11] VITALS: BP 147/68; PULSE 67; TEMP 36.4; O2SAT 99; BMI 28.7
== END 2023-11-18 12:31 | disposition home or self-care (01) ==
PROVIDERS: PCP Internal Medicine; Visit Provider Physician Assistant Surgical
DX: K80.20 Calculus of gallbladder without cholecystitis without obstruction (principal); Z98.84 Bariatric surgery status
CPT/HCPCS: 99024

== ENCOUNTER → 2023-11-18 12:01 | Outpatient (BNVA) | payer MEDICARE, SELFPAY | PROVIDERS: PCP Internal Medicine; Visit Provider Physician Assistant Surgical | DX: Z48.815 Encounter for surgical aftercare following surgery on the digestive system (principal); Z90.49 Acquired absence of other specified parts of digestive tract; Z90.3 Acquired absence of stomach [part of] | CPT/HCPCS: 99212 ==

== ENCOUNTER 2023-12-22 14:08 | Outpatient (AMB) | payer MEDICARE, SELFPAY ==
--- NOTE | 2023-12-22 14:52 | MHC.OFFVISWM ---
VS Expanded 12/22/23 15:12 BP 117/69 Blood Pressure Location Rt brachial Blood Pressure Position Sitting Pulse 67 Pulse Source Pulse Oximeter Temp 96.0 F L Temperature Source Temporal Artery Scan Pulse Oximetry 98 Oxygen Delivery Method Room Air Height 5 ft 4 in Weight 170 lb 3.2 oz BMI 29.2 Body Fat % 36.5 Body Fat Mass 62.2 Fat Free Mass 108.0 Visceral Fat Rating 10.0 Body Water % 44.7 Body Water Mass 76.0 Muscle Mass/Score 102.6 Basal Metabolic Rate/Score 1,459 Intake Visit Reasons: (OV) PO LSG 06/26/22 Allergies albuterol Adverse Reaction (Intermediate, Verified 12/22/23 14:57) Cough Medication List - Last Reconciled 12/22/23 by TIMOTHY Zhou blood pressure monitor As directed levothyroxine 50 mcg PO DAILY@0600 pantoprazole 40 mg PO DAILY PRN HPI Comments Details: Pt is 1 week s/p lap waqas 11/11/2023, also s/p LSG 06/26/2022. Denies pain. No fevers at home. No N/V. Tolerating meal plan. Weight gain of 3lbs since last OV 5 weeks ago. Pt was on vacation last week. Current meal plan: Celebrate shake in AM with coconut milk protein bar for lunch dinner- protein and veg takes MVI on days she does not get enough vitamins from shakes having popcorn with wine for nighttime snack Exercise: under desk bike- has been doing infrequently gardening/weeding [facility] Medical History (Updated 12/22/23 @ 15:24 by TIMOTHY Zhou) Abnormal EKG Arthritis HTN (hypertension) History of COVID-19 Hyperlipidemia Spasmodic dysphonia DJD (degenerative joint disease) Hypothyroidism GERD (gastroesophageal reflux disease) Morbid obesity Surgical History (Updated 12/22/23 @ 14:58 by Lilly Mckay CMA) S/P laparoscopic cholecystectomy S/P laparoscopic sleeve gastrectomy History of esophagogastroduodenoscopy (EGD) H/O colonoscopy History of ankle surgery Family History Mother No problems noted. Father Diabetes Heart disease Brother Diabetes Sister Hypertension Diabetes Sister No problems noted. Son No problems noted. Son No problems noted. Daughter No problems noted. Daughter No problems noted. Social History Are you a primary healthcare customer service to a significant other at home: No Do you presently have visiting nurse or other home services: No Alcohol intake: current Alcohol intake frequency: 0-2 drinks per day Patient Tobacco Use Status: Never used Tobacco service: No Assessment & Plan Assessment & Plan (1) S/P laparoscopic cholecystectomy: Code(s): Z90.49 - Acquired absence of other specified parts of digestive tract Category: Medical (2) Status post sleeve gastrectomy: Code(s): Z90.3 - Acquired absence of stomach [part of] Category: Medical (3) Overweight: Code(s): E66.3 - Overweight Category: Medical Plan Pt now 6w postop from lap waqas, no complications. Cleared for all activity. Continue high protein meal plan. Gave pt protein bar options handout. Cleared for all activity now that she is 6w postop, no restrictions. 18mo labs ordered. RTC in Jun for 2 year visit, pt will contact us with any concerns sooner. I spent a total of 30 minutes reviewing/updating records, examining the patient and counseling the patient on weight management as detailed above. Orders: Orders Insulin Today Z90.3 - Acquired absence of stomach [part of] C Reactive Protein Today Z90.3 - Acquired absence of stomach [part of] Lipid Panel Today Z90.3 - Acquired absence of stomach [part of] Vitamin B1 Today Z90.3 - Acquired absence of stomach [part of] Vitamin A Today Z90.3 - Acquired absence of stomach [part of] Vitamin D 25-OH Total Today Z90.3 - Acquired absence of stomach [part of] TSH reflex Free T4 Today Z90.3 - Acquired absence of stomach [part of] Hemoglobin A1c Today Z90.3 - Acquired absence of stomach [part of] Vitamin B12 and Folate Today Z90.3 - Acquired absence of stomach [part of] Zinc Today Z90.3 - Acquired absence of stomach [part of]
[2023-12-22 15:12] VITALS: BP 117/69; PULSE 67; TEMP 35.6; O2SAT 98; BMI 29.2
== END 2023-12-22 15:24 | disposition home or self-care (01) ==
PROVIDERS: PCP Internal Medicine; Visit Provider Physician Assistant Surgical
DX: E66.3 Overweight (principal); Z90.3 Acquired absence of stomach [part of]; Z90.49 Acquired absence of other specified parts of digestive tract; Z68.29 Body mass index [BMI] 29.0-29.9, adult
CPT/HCPCS: 99024

== ENCOUNTER → 2023-12-22 14:08 | Outpatient (BNVA) | payer MEDICARE, SELFPAY | PROVIDERS: PCP Internal Medicine; Visit Provider Physician Assistant Surgical | DX: E66.3 Overweight (principal); Z68.29 Body mass index [BMI] 29.0-29.9, adult; Z90.49 Acquired absence of other specified parts of digestive tract; Z90.3 Acquired absence of stomach [part of] | CPT/HCPCS: 99212 ==

== ENCOUNTER 2024-01-21 13:37 | Outpatient (REF) | payer MEDICARE, SELFPAY ==
[2024-01-21 14:44] LABS: Estimated Average Glucose 103 mg/dL; Hemoglobin A1c % 5.2 % (<6.0)
[2024-01-21 15:09] LABS: C Reactive Protein 0.21 mg/dL (< or = 0.50); Cholesterol 251 mg/dL (<200); HDL Cholesterol 65 mg/dL (>40); LDL Cholesterol Calculated 163 mg/dL (<100); Triglycerides 118 mg/dL (<150)
[2024-01-21 15:27] LABS: Insulin 6 uU/mL (2-29); Vitamin D 25-OH Total 41.1 ng/mL (>30)
[2024-01-21 15:38] LABS: Folate 16.1 ng/mL (> or = 4.0); Vitamin B12 637 pg/mL (200-900)
[2024-01-25 06:23] LABS: Zinc 75 mcg/dL (60-130)
[2024-01-26 03:03] LABS: Vitamin A 72 mcg/dL (38-98)
[2024-01-26 13:23] LABS: Vitamin B1 16 nmol/L (8-30)
== END 2024-01-21 13:38 | disposition home or self-care (01) ==
LOC: HO.LAB 13:37
PROVIDERS: Visit Provider Physician Assistant Surgical
DX: Z90.3 Acquired absence of stomach [part of] (principal); Z13.1 Encounter for screening for diabetes mellitus
CPT/HCPCS: 36415; 80061; 82306; 82607; 82746; 83036; 83525; 84425; 84443; 84590; 84630; 86140

== ENCOUNTER 2024-07-05 10:12 | Outpatient (AMB) | payer MEDICARE, SELFPAY ==
--- NOTE | 2024-07-05 10:17 | MHC.OFFVISWM ---
VS Expanded 07/05/24 10:19 BP 146/66 H Blood Pressure Location Lt brachial Blood Pressure Position Sitting Pulse 6 L Pulse Oximetry 98 Height 5 ft 4 in Weight 160 lb 3.2 oz BMI 27.5 Body Fat % 37.1 Body Fat Mass 59.4 Fat Free Mass 100.8 Visceral Fat Rating 10.0 Body Water % 44.4 Body Water Mass 71.0 Muscle Mass/Score 95.6 Basal Metabolic Rate/Score 1,367 Intake Visit Reasons: (OV) PO LSG 06/26/22 Allergies albuterol Adverse Reaction (Intermediate, Verified 07/05/24 10:19) Cough Medication List - Last Reconciled 07/05/24 by TIMOTHY Zhou blood pressure monitor As directed levothyroxine 50 mcg PO DAILY@0600 pantoprazole 40 mg PO DAILY PRN HPI Comments Details: This?is a?74?yo female who is s/p LSG 06/26/2022. Presents for 2 year post op visit. Weight loss of 10lb since last OV 6mo ago.? No complaints of nausea, emesis, abdominal pain or reflux, or constipation. Her has entered palliative care; still undergoing treatments. Her BP has been occasionally high. She endorses some right sided pain/flank pain/pressure which was worked up by urology. Unrelated to eating. She was prescribed a statin by PCP but hasn't started yet. Present meal plan includes: Celebrate shake in AM with coconut milk protein bar for lunch dinner- protein and veg takes MVI on days she does not get enough vitamins from shakes she notes that she doesn't always watch what she eats but continues to practice portion control, has been craving protein so trying to eat more high protein items Exercise: under desk bike- has been doing infrequently gardening/weeding [facility] Medical History Abnormal EKG Arthritis HTN (hypertension) History of COVID-19 Hyperlipidemia Spasmodic dysphonia DJD (degenerative joint disease) Hypothyroidism GERD (gastroesophageal reflux disease) Morbid obesity Surgical History S/P laparoscopic cholecystectomy S/P laparoscopic sleeve gastrectomy History of esophagogastroduodenoscopy (EGD) H/O colonoscopy History of ankle surgery Family History Mother No problems noted. Father Diabetes Heart disease Brother Diabetes Sister Hypertension Diabetes Sister No problems noted. Son No problems noted. Son No problems noted. Daughter No problems noted. Daughter No problems noted. Social History Are you a primary critical care educator to a significant other at home: No Do you presently have visiting nurse or other home services: No Alcohol intake: current Alcohol intake frequency: 0-2 drinks per day Patient Tobacco Use Status: Never used Tobacco service: No Physical Exam Vital Signs: Last Vital Signs Pulse 6 L 07/05/24 10:19 BP 146/66 H 07/05/24 10:19 Pulse Ox 98 07/05/24 10:19 BMI result Body Mass Index 27.5 Assessment & Plan Assessment & Plan (1) Overweight: Code(s): E66.3 - Overweight Category: Medical (2) Status post sleeve gastrectomy: Code(s): Z90.3 - Acquired absence of stomach [part of] Category: Surgical (3) S/P laparoscopic cholecystectomy: Code(s): Z90.49 - Acquired absence of other specified parts of digestive tract Category: Surgical Plan Discussed different protein options. She is still taking one shake per day. Goal 65-70g protein. Labs ordered. RTC 1 year, pt will call if she has questions or would like to be seen sooner. I spent a total of 30 minutes reviewing/updating records, examining the patient and counseling the patient on weight management as detailed above. Orders: Orders Insulin Today Z90.3 - Acquired absence of stomach [part of] Vitamin B12 and Folate Today Z90.3 - Acquired absence of stomach [part of] Zinc Today Z90.3 - Acquired absence of stomach [part of] C Reactive Protein Today Z90.3 - Acquired absence of stomach [part of] Vitamin D 25-OH Total Today Z90.3 - Acquired absence of stomach [part of] Hemoglobin A1c Today Z90.3 - Acquired absence of stomach [part of] Complete Blood Count Auto Diff Today Z90.3 - Acquired absence of stomach [part of] Lipid Panel Today Z90.3 - Acquired absence of stomach [part of] IRON PROFILE Today Z90.3 - Acquired absence of stomach [part of] Comprehensive Met. Panel Today Z90.3 - Acquired absence of stomach [part of] Vitamin B1 Today Z90.3 - Acquired absence of stomach [part of] Vitamin A Today Z90.3 - Acquired absence of stomach [part of] TSH reflex Free T4 Today Z90.3 - Acquired absence of stomach [part of] Ferritin Today Z90.3 - Acquired absence of stomach [part of]
[2024-07-05 10:19] VITALS: BP 146/66; PULSE 6; O2SAT 98; BMI 27.5
--- OUTSIDE RECORDS SUMMARY | 2024-07-05 11:57 | XMS_ITS | Clinical Summary ---
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 HOLLAND (obstructive sleep apnea) 04/18/2021 DX :HOLLAND (obstructive sleep apnea); COMMENT: September 2018 sleep study, CPAP not covered by insurance. COPD (chronic obstructive pu lmonary disease) ([facility]) 01/22/2021 DX:COPD (chronic obstructive pulmonary disease) ([facility]); COMMENT: SOB Dyspnea on exertion 04/18/2021 DX:Dyspnea o n exertion Morbid obesity with BMI of 4 0.0-44.9, adult ([facility]) 04/18/2021 DX:Morbid obesity with BMI o f 40.0-44.9, adult ([facility]) Family History Medical History Relation Name Comments Diabetes Father Other: Heart disease Father Relation Name Status Comments Brother Alive Daughter 1 Alive Daughter 2 Alive Father Mother Alive Sister 1 Alive Sister 2 Alive Son 1 Alive Son 2 Alive Social History Tobacco Use Types Packs/Day Years Used Date Smoking Tobacco: Never Smokeless Tobacco: Never Alcohol Use Standard Drinks/Week Comments Yes 0 (1 standard drink = 0.6 oz pur e alcohol) Comments Unknown Sex and Gender Information Value Date Recorded Sex Assigned at Not on file Legal Sex Female 6:02 PM EST Gender Identity Not on file Sexual Orientation Not on file Obstetrics History Last Filed Vital Signs Vital Sign Reading Time Taken Comments Blood Pressure 132/72 08/11/2022 3:05 PM EDT Sitting L Arm Pulse 55 08/11/2022 3:05 PM EDT Temperature - - Respiratory Rate - - Oxygen Saturation - - Inhaled Oxygen Concentration - - Weight 94.2 kg (207 lb 9.6 oz) 08/11/2022 3:05 PM EDT Height 162.6 cm (5' 4 ) 08/11/2022 3:05 PM EDT Body Mass Index 35.63 08/11/2022 3:05 PM EDT Plan of Treatment Health Maintenance Due Date Last Done Comments DTaP,Tdap,and Td Vaccines (1 - Tdap) 1971 Pneumococcal Vaccine: 50+ Years (1 of 2 - PCV) 1971 Zoster Vaccines (1 of 2) 2002 RSV Immunization Patients 60 + Years Old (1 - Risk 60-74 years 1-dose series) 2012 Cholesterol Screening (Lipid Panel) 04/12/2022 Colorectal Cancer Screening: Colonoscopy 04/12/2022 Depression Screening 04/12/2022 Falls Risk Assessment 04/12/2022 Hepatitis C Screening 04/12/2022 Social Influencers of Health Screening 04/12/2022 Medicare Annual Wellness Visit 02/21/2023 02/21/2022 COVID-19 Vaccine (1 - 2023-2 5 season) 2024 Influenza Vaccine (#1) 2024 2, 04/25/2021 Breast Cancer Screening 09/15/2025 09/16/19 24, 09/21/2020, 11/13/2017 Osteoporosis Screening (Bone Density Screening) 03/21/2032 03/21/2022 HIB Vaccines Aged Out No longer eligi ble based on patient's age to complete this topic HPV Vaccines Aged Out No longer eligi ble based on patient's age to complete this topic Hepatitis A Vaccines Aged Out No long er eligible based on patient's age to complete this topic Hepatitis B Vaccines Aged Out No long er eligible based on patient's age to complete this topic IPV Vaccines Aged Out No longer eligi ble based on patient's age to complete this topic MMR Vaccines Aged Out No longer eligi ble based on patient's age to complete this topic Meningococcal ACWY Vaccine Aged Out N o longer eligible based on patient's age to complete this topic Meningococcal B Vacine Aged Out No lo nger eligible based on patient's age to complete this topic RSV Immunization Patients Under 20 months Aged Out No longer eligible b ased on patient's age to complete this topic Varicella Vaccines Aged Out No longer eligible based on patient's age to complete this topic Procedures Procedure Name Priority Date/Time Associated Diagnosis Comments [facility] SCREENING DIGITAL Routine 09/16/2023 9:05 AM EDT Encounter for screening mammogram for malignant neoplasm of breast [facility] DEXA AXIAL SKELETON Routine 03/21/2022 4:03 PM EST Encounter for screening for osteoporosis from Last 3 Months or Most Recently Relevant to Health Maintenance Results * [facility] SCREENING DIGITAL (09/16/2023 9:05 AM EDT) Anatomical Region Laterality Modality Mammography 09/16/2023 7:38 AM EDT Narrative 09/16/2023 9:05 AM EDT [facility] Diagnostic Imaging Department [address] [place] [address] Patient: ??MARIA ESTHER KC ?/Age/Sex: 1950 73 - F Unit#: ??[id number] ? Location/Status: ??SPDIMAM/REG CLI ? Mnemonic/Ordering Site: ??DIGSC/SPMAM Ordering Physician: ??THOMAS DOBBINS MD [place] Screening Digital - 09/16/23 - [id number] Report Status:Signed EXAM: [facility] Screening Digital EXAM DATE AND TIME: 09/16/2023 8:00 AM HISTORY: ??Annual screening COMPARISON: ??Multiple exams dating back to 2012 TECHNIQUE: Bilateral digital breast tomosynthesis was performed in the CC and MLO projections. Computer aided detection with Navent 3D 3.1 was employed. TISSUE DENSITY: b. There are scattered areas of fibroglandular density. FINDINGS: No suspicious masses, grouped microcalcifications, or areas of architectural distortion are seen. The skin and vascularity are unremarkable. IMPRESSION: Stable mammographic appearance of the breasts. ??No evidence of malignancy is seen. A negative mammogram in the presence of a clinically suspicious palpable abnormality does not preclude the possibility of malignancy or alter the indications for biopsy. BI-RADS: ??Category 1: Negative RECOMMENDATION(S): 1: Routine screening mammogram BILATERAL in 1 year. 3341F, 7025F Dictating Physician: ??ENOCH MELÉNDEZ MD Electronically Signed by: ??ENOCH MELÉNDEZ MD Dic Date/Time: ??09/16/23 09 Sign date/Time: ??09/16/23 09 Procedure Note Enoch Meléndez MD - 12/28/2023 [facility] Diagnostic Imaging Department [address] [place] [address] Patient: MARIA ESTHER KCO.B./Age/Sex: 1950 - 73 - F Unit#: [id number] Location/Status: [facility] CLI Mnemonic/Ordering Site: [facility] Ordering Physician: THOMAS DOBBINS MD [facility] Screening Digital - 09/16/23 - [id number] Report Status:Signed EXAM: [facility] Screening Digital EXAM DATE AND TIME: 09/16/2023 8:00 AM HISTORY: Annual screening COMPARISON: Multiple exams dating back to 2012 TECHNIQUE: Bilateral digital breast tomosynthesis was performed in the CCand MLO projections. Computer aided detection with Navent 3D 3.1was employed. TISSUE DENSITY: b. There are scattered areas of fibroglandular density. FINDINGS: No suspicious masses, grouped microcalcifications, or areas ofarchitectural distortion are seen. The skin and vascularity are unremarkable. IMPRESSION: Stable mammographic appearance of the breasts. No evidence of malignancyis seen. A negative mammogram in the presence of a clinically suspicious palpable abnormality does not preclude the possibility of malignancy or alter the indications for biopsy. BI-RADS: Category 1: Negative RECOMMENDATION(S): 1: Routine screening mammogram BILATERAL in 1 year. 3341F, 7025F Dictating Physician: ENOCH MELÉNDEZ MD Electronically Signed by: ENOCH MELÉNDEZ MD Dic Date/Time: 09/16/23903 Sign date/Time: 09/16/23904 Thomas Dobbins MD IMG BI PROCEDURES Final Result * [facility] DEXA AXIAL SKELETON (03/21/2022 4:03 PM EST) Anatomical Region Laterality Modality Mammography 03/21/2022 1:20 PM EST Narrative 03/21/2022 4:03 PM EST [facility] Diagnostic Imaging Department [address] [place] [id number] Patient: ??MARIA ESTHER KC ?/Age/Sex: 1950 - 72 - F Unit#: ??[id number] ? Location/Status: ??SPDIMAM/REG CLI ? Mnemonic/Ordering Site: ??MAMDEXAAX/SPMAM Ordering Physician: ??THOMAS DOBBINS MD [place] Dexa Axial Skeleton - 03/21/22 - 1352 History: Low estrogen state due to menopause. History of fracture. Comparison: 09/18/20 Findings: Bone densitometry is performed utilizing dual energy x-ray absorptiometry (DXA) in the [employer] unit. The lumbar spine and proximal femora are evaluated in the AP projection. The FRAX questionaire was completed. The results indicate osteoporosis, with a lumbar spine T-score of -2.7. The Z score is -2.2, indicating very low bone mineral density for age. There have been statistically significant decreases in bone mineral density in the spine and bilateral total femurs since the previous exam. ??The detailed DEXA report will be mailed to the referring physician's office. DualFemur FRAX: 10-year Probability of Fracture: Major Osteoporotic 18.9 percent ??Hip 4.0 percent. IMPRESSION: Osteoporosis. [id number] Dictating Physician: ??RUBIA SPIVEY MD Electronically Signed by: ??RUBIA SPIVEY MD Dic Date/Time: ??03/21/22 1602 Sign date/Time: ??03/21/22 1603 Procedure Note Rubia Spivey MD - 06/12/2023 [facility] Diagnostic Imaging Department [address] [place] [address] Patient: MARIA ESTHER KC Lizette /Age/Sex: 1950 - 72 - F Unit#: [id number] Location/Status: SPDIMAM/REG CLI Mnemonic/Ordering Site: MAMDEXAAX/SPMAM Ordering Physician: THOMAS DOBBINS MD [place] Dexa Axial Skeleton - 03/21/22 - 2 History: Low estrogen state due to menopause. History of fracture. Comparison: 09/18/20 Findings: Bone densitometry is performed utilizing dual energy x-ray absorptiometry(DXA) in the [employer] unit. The lumbar spine and proximal femora areevaluated in the AP projection. The FRAX questionaire was completed. The results indicate osteoporosis, with a lumbar spine T-score of -2.7.The Z score is -2.2, indicating very low bone mineral density for age. Therehave been statistically significant decreases in bone mineral density in the spineand bilateral total femurs since the previous exam. The detailed DEXA reportwill be mailed to the referring physician's office. DualFemur FRAX: 10-year Probability of Fracture: Major Osteoporotic 18.9 percent Hip 4.0 percent. IMPRESSION: Osteoporosis. [id number] Dictating Physician: RUBIA SPIVEY MD Electronically Signed by: RUBIA SPIVEY MD Dic Date/Time: 03/21/22 160 Sign date/Time: 03/21/22 160 Thomas Dobbins MD IMG BI PROCEDURES Final Result from Last 3 Months or Most Recently Relevant to Health Maintenance Insurance MEDICARE [facility] Care Teams [employer] Relationship Specialty Start Date End Date Tiffany Dobbins MD PCP - General Internal Medicine 11/23/20
--- OUTSIDE RECORDS SUMMARY | 2024-07-05 11:57 | XMS_ITS ---
Author Organization [facility] Address [address] [place] [address] Care Team Providers Care Assistant Front Office Manager Name Role Phone ASHVIN DOBBINS Unavailable [phone] CRYSTAL CURRAN Unavailable [phone] ALLERGIES Allergen (clinical drug ingredient) Drug/Non Drug Allergy documented on EMR Reaction Allergy Type Onset Date Status albuterol Albuterol Sulfate HFA Unknown Drug Allergy Active REASON FOR VISIT pt is here for left ear pain, claims right ear is starting to get sore, started 4-5 days ago MEDICATIONS Medication SIG (Take, Route, Frequency, Duration) Notes Start Date End Date Status Pantoprazole Sodium 40 MG 1 tablet Orall y Once a day for 90 days PRN Active Levothyroxine Sodium 50 MCG TAKE 1 TABLE T BY MOUTH DAILY IN THE MORNING ON AN EMPTY STOMACH for 90 Active Rosuvastatin Calcium 5 MG 1 tablet Orall y Once a day for 90 days 03/10/2024 Active diphenhydrAMINE HCl 25 MG 1 capsule at b edtime as needed Orally Once a day Not-Taking SOCIAL HISTORY Tobacco Use: Social History Observation Description Date Details (start date - stop date) Never Smoker NA - NA Sex Assigned At : Social History Observation Description Sex Assigned At Unknown Tobacco Use/Smoking Question Answer Notes Are you a nonsmoker VITAL SIGNS Blood pressure systolic 114 mm Hg 05/20/19 25 Blood pressure diastolic 60 mm Hg 025 Heart Rate 58 /min 05/20/2024 Height 63 in 05/20/2024 Weight 168.6 lbs 05/20/2024 BMI 29.86 kg/m2 05/20/2024 Oximetry 96 % 05/20/2024 Encounters Encounter Location Date Provider Diagnosis [facility] [address] [place] [address] 05/20/2024 CRYSTAL CURRAN Impacted cerumen of left ear H61.22 ; Primary hypothyroidism E03.9 and Mixed hyperlipidemia E78.2 ASSESSMENTS Encounter Date Diagnosis Assessment Notes Treatment Notes Treatment Clinical Notes Section Notes 05/20/2024 Impacted cerumen of left ear (ICD-10 - H61.22) Maria Esther is a pleasant 74-year-old female presents today for urgent visit. Past medical history of osteoporosis, vocal cord spasm, hypothyroidism, spasmodic dysphonia. #Cerumen impaction: Left ear cerumen impaction. States she developed a blocked ear sensation 4 to 5 days ago of the left ear. Denies any change to hearing. Denies pain, pulsing sensation, itching to the ear. Denies fever or chills. Denies cough, rhinorrhea, nasal congestion, sore throat. Denies nausea or vomiting. Patient states right ear is unremarkable. Patient reports using xepl-eyh-pemhhav Debrox with no relief. Denies any history of sticking anything in your ears including Q-tips. On exam, left ear tympanic membrane not visualized due to cerumen impaction. Plan to perform ear lavage in office today. On reexamination, left tympanic membrane visualized and unremarkable. No further management needed. #Hypothyroidism: Plan to continue levothyroxine 50 p.o. once daily. #Hyperlipidemia: Continue rosuvastatin 5 mg p.o. once daily All questions answered to patients satisfaction. Patient verbalized understanding of diagnosis and treatments explained. To call sooner prior to next visit it any questions/concerns arise. Case discussed with collaborating physician Dr. Dobbins who reviewed the assessment and plan. Chart, medications, labs, vital signs reviewed. Dictation was accomplished with the use of noodls voice recognition software, prone to medical misidentifications and grammatical errors. This is unintentional and the practitioner does try to identify and correct these, but some could still be present. Please do not hesitate to contact practitioner for clarification. 05/20/2024 Primary hypothyroidism (ICD-10 - E03.9) Maria Esther is a pleasant 74-year-old female presents today for urgent visit. Past medical history of osteoporosis, vocal cord spasm, hypothyroidism, spasmodic dysphonia. #Cerumen impaction: Left ear cerumen impaction. States she developed a blocked ear sensation 4 to 5 days ago of the left ear. Denies any change to hearing. Denies pain, pulsing sensation, itching to the ear. Denies fever or chills. Denies cough, rhinorrhea, nasal congestion, sore throat. Denies nausea or vomiting. Patient states right ear is unremarkable. Patient reports using uhap-ajn-jufwgqr Debrox with no relief. Denies any history of sticking anything in your ears including Q-tips. On exam, left ear tympanic membrane not visualized due to cerumen impaction. Plan to perform ear lavage in office today. On reexamination, left tympanic membrane visualized and unremarkable. No further management needed. #Hypothyroidism: Plan to continue levothyroxine 50 p.o. once daily. #Hyperlipidemia: Continue rosuvastatin 5 mg p.o. once daily All questions answered to patients satisfaction. Patient verbalized understanding of diagnosis and treatments explained. To call sooner prior to next visit it any questions/concerns arise. Case discussed with collaborating physician Dr. Dobbins who reviewed the assessment and plan. Chart, medications, labs, vital signs reviewed. Dictation was accomplished with the use of noodls voice recognition software, prone to medical misidentifications and grammatical errors. This is unintentional and the practitioner does try to identify and correct these, but some could still be present. Please do not hesitate to contact practitioner for clarification. 05/20/2024 Mixed hyperlipidemia (ICD-10 - E78.2) Maria Esther is a pleasant 74-year-old female presents today for urgent visit. Past medical history of osteoporosis, vocal cord spasm, hypothyroidism, spasmodic dysphonia. #Cerumen impaction: Left ear cerumen impaction. States she developed a blocked ear sensation 4 to 5 days ago of the left ear. Denies any change to hearing. Denies pain, pulsing sensation, itching to the ear. Denies fever or chills. Denies cough, rhinorrhea, nasal congestion, sore throat. Denies nausea or vomiting. Patient states right ear is unremarkable. Patient reports using hyyu-qwl-ykalqup Debrox with no relief. Denies any history of sticking anything in your ears including Q-tips. On exam, left ear tympanic membrane not visualized due to cerumen impaction. Plan to perform ear lavage in office today. On reexamination, left tympanic membrane visualized and unremarkable. No further management needed. #Hypothyroidism: Plan to continue levothyroxine 50 p.o. once daily. #Hyperlipidemia: Continue rosuvastatin 5 mg p.o. once daily All questions answered to patients satisfaction. Patient verbalized understanding of diagnosis and treatments explained. To call sooner prior to next visit it any questions/concerns arise. Case discussed with collaborating physician Dr. Dobbins who reviewed the assessment and plan. Chart, medications, labs, vital signs reviewed. Dictation was accomplished with the use of noodls voice recognition software, prone to medical misidentifications and grammatical errors. This is unintentional and the practitioner does try to identify and correct these, but some could still be present. Please do not hesitate to contact practitioner for clarification. PLAN OF TREATMENT Next Appt Details Provider Name:MARIE MATIAS , 09/01/2024 08:00:00 AM, [address] [place] [address], [id number], Progress Notes * VALERIANO KCE ADOB:1950 ( 74 yo F)Acc No.[id number]:05/20/2024 Progress Notes Patient:??MARIA ESTHER KC A Provider:??CRYSTAL CURRAN PA-C :1950?Age:74 Y?Sex:Fe male Date:05/20/2024 Address:[address] [place], [place] [id number] Subjective: * Chief Complaints: * ?1. Pt is here for left ear pain, claims right ear is starting to get sore, started 4-5 days ago. * HPI: ?Constitutional:? Maria Esther is a 74 year old female present today for urgent visit. Past medical history of osteoporosis, vocal cord spasm, hypothyroidism, spasmodic dysphonia. ?Patient reports for the past 4 to 5 days, her left ear has felt blocked and sore. Denies pain, pulsing sensation, itching to the ear. Denies fever or chills. Denies cough, rhinorrhea, nasal congestion, sore throat. Denies nausea or vomiting. Patient states right ear is unremarkable. Patient denies any known sick contacts. Has tried ejxp-srk-jmyzqlx Debrox with no relief. States that her mother was a pharmacist so she is very conscientious to not stick anything in her ears including Q-tips. * ROS:?All Other Systems:?Review of Systems (ROS)??All others negative except those mentioned in HPI.? * Medical History:??Osteoporos is without current pathological fracture, unspecified osteoporosis type, Vocal cord spasm, Hypothyroidism (acquired), Spasmodic dysphonia. * Surgical History:??ankle deyanira ar , colonoscopy 4 years , Lap cholecystectomy [place] Nov 01, Sleeve gastrectomy by Dr [facility]cle[facility]ulus 2022. * Family History:??Father: dec eased.??Mother: alive.??1 brother(s) , 2 sister(s) . 2 son(s) , 2 daughter(s) . .?? dad hx dm, heart disease. * Social History:?Tobacco Use:??Tobacco Use/Smoking??Are you a??nonsmoker.?? * Medications:??Taking Pantopr azole Sodium 40 MG Tablet Delayed Release 1 tablet Orally Once a day , Notes to Pharmacist: PRN, Taking Levothyroxine Sodium 50 MCG Tablet TAKE 1 TABLET BY MOUTH DAILY IN THE MORNING ON AN EMPTY STOMACH , Taking Rosuvastatin Calcium 5 MG Tablet 1 tablet Orally Once a day , Not-Taking diphenhydrAMINE HCl 25 MG Capsule 1 capsule at bedtime as needed Orally Once a day , Discontinued Amoxicillin-Pot Clavulanate 500-125 MG Tablet 1 tablet Orally every 12 hrs , Medication List reviewed and reconciled with the patient * Allergies:??Albuterol Sulfat e HFA. Objective: * Vitals:??HR:58/min, BP:114/6 0mm Hg, Wt:168.6lbs, BMI:29.86Index, Ht: 63 in, Oxygen sat %:96%. * Physical Examination:?General: Age appropriate female, well appearing, no acute distress, speaking in full sentences without respiratory compromise. Well groomed, well developed. Alert, Interactive. ? Skin: Warm, dry and intact. ? HEENT: Normocephalic/atraumatic. EOMI intact. PERRLA. Vision intact. No ptosis or lid lag. Nares without discharge or inflammation. Oral cavity free of plaques or exudates. Dentition well maintained. No pharyngeal erythema. +left ear impacted with cerumen. Tympanic membrane not visualized.Right ear unremarkable. ? Neck/Thyroid: Supple. Full ROM. ? Lung: Clear to auscultation bilaterally, no wheezes, rales or rhonchi. No barrel chest. Equal chest rise and fall bilaterally. ? Cardiac: S1 and S2 appreciated. No murmurs/rubs or gallops. ? Psych: Stable mood and affect. Assessment: * Assessment: 1.??Impacted cerumen of left ear - H61.22 (Primary)??2.??Primary hypothyroidism - E03.9??3.??Mixed hyperlipidemia - E78.2?? Maria Esther is a pleasant 74-year-o ld female presents today for urgent visit. Past medical history of osteoporosis, vocal cord spasm, hypothyroidism, spasmodic dysphonia. #Cerumen impaction: Left ear cerumen impaction. States she developed a blocked ear sensation 4 to 5 days ago of the left ear. Denies any change to hearing. Denies pain, pulsing sensation, itching to the ear. Denies fever or chills. Denies cough, rhinorrhea, nasal congestion, sore throat. Denies nausea or vomiting. Patient states right ear is unremarkable. Patient reports using eore-kss-slezwes Debrox with no relief. Denies any history of sticking anything in your ears including Q-tips. On exam, left ear tympanic membrane not visualized due to cerumen impaction. Plan to perform ear lavage in office today. On reexamination, left tympanic membrane visualized and unremarkable. No further management needed. #Hypothyroidism: Plan to continue levothyroxine 50 p.o. once daily. #Hyperlipidemia: Continue rosuvastatin 5 mg p.o. once daily All questions answered to patients satisfaction. Patient verbalized understanding of diagnosis and treatments explained. To call sooner prior to next visit it any questions/concerns arise. Case discussed with collaborating physician Dr. Dobbins who reviewed the assessment and plan. Chart, medications, labs, vital signs reviewed. Dictation was accomplished with the use of noodls voice recognition software, prone to medical misidentifications and grammatical errors. This is unintentional and the practitioner does try to identify and correct these, but some could still be present. Please do not hesitate to contact practitioner for clarification. Plan: * Treatment: * Procedure Codes:??78266 EAR IRRIGATION Care Plan: * Problems:?? * Images: Billing Information: * Visit Code:?? 64428 Office Visit, Est Pt., Level 3. * Procedure Codes:?? 11611 EAR IRRIGATION. Care Plan Details* * Sign off status: Completed true * Provider:??CRYSTAL CURRAN PA-C Date:??02/2025 History and Physical Notes * HPI (History of Present Illness) Category Sub-Category Detail Notes Category Not es Constitutional Maria Esther is a 74 year old female present today for urgent visit. Past medical history of osteoporosis, vocal cord spasm, hypothyroidism, spasmodic dysphonia. Patient reports for the past 4 to 5 days, her left ear has felt blocked and sore. Denies pain, pulsing sensation, itching to the ear. Denies fever or chills. Denies cough, rhinorrhea, nasal congestion, sore throat. Denies nausea or vomiting. Patient states right ear is unremarkable. Patient denies any known sick contacts. Has tried mwro-djg-wlmfglk Debrox with no relief. States that her mother was a pharmacist so she is very conscientious to not stick anything in her ears including Q-tips. Physical Examination Category Sub-Category Detail Notes Section Note s General: Age appropriate female, well appearing, no acute distress, speaking in full sentences without respiratory compromise. Well groomed, well developed. Alert, Interactive. Skin: Warm, dry and intact. HEENT: Normocephalic/atraumatic. EOMI intact. PERRLA. Vision intact. No ptosis or lid lag. Nares without discharge or inflammation. Oral cavity free of plaques or exudates. Dentition well maintained. No pharyngeal erythema. +left ear impacted with cerumen. Tympanic membrane not visualized.Right ear unremarkable. Neck/Thyroid: Supple. Full ROM. Lung: Clear to auscultation bilaterally, no wheezes, rales or rhonchi. No barrel chest. Equal chest rise and fall bilaterally. Cardiac: S1 and S2 appreciated. No murmurs/rubs or gallops. Psych: Stable mood and affect.
--- OUTSIDE RECORDS SUMMARY | 2024-07-05 11:57 | XMS_ITS ---
Author Organization [facility] Address [address] [place] [address] Care Team Providers Care Cocoa Room Operator Name Role Phone LANCASTERASHVIN HARRINGTON Unavailable [phone] REASON FOR VISIT ear pain Encounters Encounter Location Date Provider Diagnosis [facility] [address] [place] [address] 05/19/2024 ASHVIN LANCASTER PLAN OF TREATMENT Next Appt Details Provider Name:MARIE MATIAS , 09/01/2024 08:00:00 AM, [address] [place] [address], [facility] [address], [place], [address], Progress Notes * ESTER KC ADOB:1950 ( 74 yo F)Acc No.[id number]:05/19/2024 Patient:??ESTER KC :1950?Age:74 Y?Sex:Fe male Address:[address] [place] [id number] * true * Date:??
--- OUTSIDE RECORDS SUMMARY | 2024-07-05 11:57 | XMS_ITS ---
Author Organization [facility] Address [address] [place] [address] Care Team Providers Care Quantitative Analyst Developer Name Role Phone LANCASTER, ASHVIN Unavailable [phone] JC LANCASTER Unavailable [phone] REASON FOR VISIT CCM Encounters Encounter Location Date Provider Diagnosis [facility] [address] [facility] [address] [place] [address] 04/20/2024 JC LANCASTER PLAN OF TREATMENT Next Appt Details Provider Name:MARIE MATIAS , 09/01/2024 08:00:00 AM, [address], [facility] [address], [place], [address], Progress Notes * ESTER KC ADOB:1950 ( 74 yo F)Acc No.[id number]:04/20/2024 Patient:??ESTER KC :1950?Age:74 Y?Sex:Fe male Address:[address] [place] [id number] * true * Date:??
== END 2024-07-05 11:07 | disposition home or self-care (01) ==
PROVIDERS: PCP Internal Medicine; Visit Provider Physician Assistant Surgical
DX: E66.3 Overweight (principal); Z68.27 Body mass index [BMI] 27.0-27.9, adult; Z90.3 Acquired absence of stomach [part of]; Z90.49 Acquired absence of other specified parts of digestive tract
CPT/HCPCS: 99214; G2211

== ENCOUNTER → 2024-07-05 10:12 | Outpatient (BNVA) | payer MEDICARE, SELFPAY | PROVIDERS: PCP Internal Medicine; Visit Provider Physician Assistant Surgical | DX: E66.3 Overweight (principal); Z98.84 Bariatric surgery status; Z90.49 Acquired absence of other specified parts of digestive tract; Z68.27 Body mass index [BMI] 27.0-27.9, adult | CPT/HCPCS: 99212 ==